=== PATIENT | female | born 1940 | race Caucasian/White ===

== ENCOUNTER 2016-09-19 13:48 | Emergency (ER) | payer MEDICARE, OTHER ==
[2016-09-19] MEDS ORDERED: HYDROcodone/APAP 5-325MG 1 EACH TAB PO STA (14:28)
--- NOTE | 2016-09-19 14:29 | ED ---
General Adult HPI - General Chief complaint: Extremity Injury, Upper Stated complaint: Fall/back pain Time Seen by Provider: 09/19/16 14:25 Source: patient, RN notes reviewed, old records reviewed Mode of arrival: ambulatory Limitations: no limitations - History of Present Illness Initial comments: This is a 68-year-old female here for evaluation. Patient's is here today for evaluation of fall. Patient fell landing on her back beginning of pain in the middle back and right shoulder. No other injuries did not have adenopathy, cecelia fall was purely mechanical no syncope, no headache chest pain shortness of breath or abdominal pain, no history of blood thinners - Related Data Home Medications Medication Instructions Recorded Confirmed Atenolol [Atenolol] 25 mg PO QAM 03/09/16 09/19/16 Warfarin Sodium [Warfarin Sodium] 3 mg PO HS 03/09/16 09/19/16 amLODIPine/ATORVASTATIN 1 tab PO HS 03/09/16 09/19/16 [amLODIPine/ATORVASTATIN 5-10 mg] Previous Rx's Medication Instructions Recorded Nitrofurantoin Monohyd/M-Cryst 100 mg PO Q12HR #10 cap 03/14/16 [Macrobid] Allergies Allergy/AdvReac Type Severity Reaction Status Date / Time sulfamethoxazole Allergy Rash/Hives Verified 09/19/16 14:43 [From Bactrim] trimethoprim [From Bactrim] Allergy Rash/Hives Verified 09/19/16 14:43 Review of Systems ROS Statement: Those systems with pertinent positive or pertinent negative responses have been documented in the HPI. ROS Other: All systems not noted in ROS Statement are negative. Past Medical History Past Medical History: Atrial Fibrillation, Cancer Additional Past Medical History / Comment(s): HX LUNG CA, HX OF "TUMOR ON INTESTINE FOUND WITH HYSTERECTOMY" CHRONIC COUGH, URINARY INCONTINENCE STATES WEARS PAD DAILY History of Any Multi-Drug Resistant Organisms: None Reported Past Surgical History: Hysterectomy Additional Past Surgical History / Comment(s): RT LUNG WEDGE SECTION REMOVED FROM UPPER AND LOWER, STACY CATARACT Past Anesthesia/Blood Transfusion Reactions: No Reported Reaction Past Psychological History: No Psychological Hx Reported Smoking Status: Never smoker Past Alcohol Use History: None Reported Past Drug Use History: None Reported General Exam Limitations: no limitations General appearance: alert, in no apparent distress Head exam: Present: atraumatic, normocephalic, normal inspection Eye exam: Present: normal appearance, PERRL, EOMI. Absent: scleral icterus, conjunctival injection, periorbital swelling ENT exam: Present: normal exam, mucous membranes moist Neck exam: Present: normal inspection. Absent: tenderness, meningismus, lymphadenopathy Respiratory exam: Present: normal lung sounds bilaterally. Absent: respiratory distress, wheezes, rales, rhonchi, stridor Cardiovascular Exam: Present: regular rate, normal rhythm, normal heart sounds. Absent: systolic murmur, diastolic murmur, rubs, gallop, clicks GI/Abdominal exam: Present: soft, normal bowel sounds. Absent: distended, tenderness, guarding, rebound, rigid Extremities exam: Present: normal inspection, full ROM, normal capillary refill. Absent: tenderness, pedal edema, joint swelling, calf tenderness Back exam: Present: normal inspection Neurological exam: Present: alert, oriented X3, CN II-XII intact Psychiatric exam: Present: normal affect, normal mood Skin exam: Present: warm, dry, intact, normal color. Absent: rash Course Vital Signs 09/19/16 14:18 Temperature 97.1 F L Pulse Rate 59 L Respiratory 20 Rate Blood Pressure 155/76 O2 Sat by Pulse 97 Oximetry - Reevaluation(s) Reevaluation #1: 09/19/16 14:47 Pain is improved Medical Decision Making - Medical Decision Making 76 female ER for evaluation. Patient presents here today for evaluation of fall. Follow-up right shoulder pain back pain, contusion or fracture. Patient can be discharged - Radiology Data Radiology results: report reviewed (X-ray right shoulder, chest, pelvis is negative for traumatic injury), image reviewed Disposition Clinical Impression: Fall, Strain of shoulder, Back contusion Disposition: HOME SELF-CARE Condition: Good Instructions: Contusion in Adults (ED) Referrals: Kings Hope MD [Primary Care Provider] - 1-2 days
[2016-09-19] MEDS ORDERED: ONDANSETRON 4 MG TAB PO STA (14:31)
--- NOTE | 2016-09-19 15:38 | XR ---
EXAMINATION TYPE: XR chest 1V DATE OF EXAM: 09/19/2016 3:32 PM COMPARISON: 03/14/2016 HISTORY: Back pain TECHNIQUE: Single frontal view of the chest is obtained. FINDINGS: Heart is enlarged. There is no heart failure. There is coarsening of interstitial markings in the mid and lower lung ayon. There is no pleural effusion. There are no hilar masses. IMPRESSION: Moderate cardiomegaly. Pulmonary fibrotic changes. Inspiration is worse than last exam.
--- NOTE | 2016-09-19 15:42 | XR ---
EXAMINATION TYPE: XR shoulder complete RT DATE OF EXAM: 09/19/2016 3:32 PM COMPARISON: NONE HISTORY: Back pain. Shoulder pain. TECHNIQUE: 3 views FINDINGS: There is narrowing of the glenohumeral joint space with spurring. AC joint is intact. I see no fracture. IMPRESSION: Severe osteoarthritis. No fracture.
--- NOTE | 2016-09-19 15:43 | XR ---
EXAMINATION TYPE: XR pelvis AP view DATE OF EXAM: 09/19/2016 3:32 PM COMPARISON: NONE HISTORY: Pain TECHNIQUE: Single view FINDINGS: Pelvic ring is intact. There are numerous phleboliths in the pelvis. Proximal femurs are in tact. Sacroiliac joints are normal. I see no fracture. IMPRESSION: No acute abnormality of the pelvis.
[2016-09-19] MEDS ORDERED: MORPHINE SULFATE 10 MG/ML SYRINGE IM STA (16:02)
[2016-09-19 16:38] VITALS: BP 157/86; PULSE 64; RESP 18; TEMP 99.3
== END 2016-09-19 16:40 | disposition home or self-care (01) ==
LOC: EC 13:48
DX: S46.911A Strain of unspecified muscle, fascia and tendon at shoulder and upper arm level, right arm, initial encounter (principal); W01.0XXA Fall on same level from slipping, tripping and stumbling without subsequent striking against object, initial encounter; S20.229A Contusion of unspecified back wall of thorax, initial encounter; I48.91 Unspecified atrial fibrillation; Z85.118 Personal history of other malignant neoplasm of bronchus and lung; Z79.01 Long term (current) use of anticoagulants; Z79.899 Other long term (current) drug therapy; Z88.2 Allergy status to sulfonamides
CPT/HCPCS: 71010; 72170; 73030; 99284; 96372; J2270

== ENCOUNTER → 2017-02-04 | Outpatient (CLI) | payer MEDICARE, OTHER ==
[2017-02-04 11:57] LABS: Blood Urea Nitrogen 12 mg/dL (7-17); Non-African American GFR(MDRD) 52 (>60 ml/min/1.73 sqM)
--- NOTE | 2017-02-04 14:46 | CT ---
EXAMINATION TYPE: CT chest w con DATE OF EXAM: 02/04/2017 COMPARISON: 02/17/2016 HISTORY: Uterine cancer, Pulmonary nodules CT DLP: 543 mGycm, Automated exposure control for dose reduction was used. CONTRAST: Performed injected with 75 ml mL of Visipaque 320. TECHNIQUE: Axial images were obtained at 5 mm thick sections. Reconstructed images are reviewed on t he computer in the coronal plane. FINDINGS: There is a large hypodensity within the right lobe thyroid. This could be further evaluated with ultrasound. Some calcified nodule within the inferior pole left lobe thyroid may be present. There is a pleural-based nodule measuring 0.6 cm in depth in the superior lateral left upper lobe. Se gloria 4 image 15. There is a large mass at the as ago esophageal recess better visualized on the mediastinal windows. T his measures 2.5 x 2.2 cm. Series 4 image 3. There is a calcified granuloma in the right middle lobe measuring 0.4 cm. Series 4 image 29. No enlarged mediastinal or hilar adenopathy is evident. The ascending aorta diameter at the level o f the main pulmonary artery is 3.7 cm. The main pulmonary artery diameter at the bifurcation is 3.[address] sections are obtained through the upper abdomen. The anterior inferior left adrenal gland is somewhat prominent measuring 1.1 cm in size. IMPRESSIONS: 1. Pulmonary nodule azygoesophageal recess 2.5 x 2.2 cm mass is larger than the previous 2.0 x 1.9 cm mass. 2. Pleural-based thickening left upper posterior lung. The 0.6 cm depth is greater previous 0.4 cm d epth.
== END | disposition home or self-care (01) ==
LOC: RADCTMAIN 11:19
PROVIDERS: ATTEND Internal Medicine Hematology & Oncology
DX: J92.9 Pleural plaque without asbestos (principal); R91.8 Other nonspecific abnormal finding of lung field; C54.0 Malignant neoplasm of isthmus uteri
CPT/HCPCS: 82565; 84520; 71260; 36415; Q9967

== ENCOUNTER → 2017-05-31 | Outpatient (CLI) | payer MEDICARE, OTHER ==
--- NOTE | 2017-05-31 09:23 | CT ---
EXAMINATION TYPE: CT chest w con DATE OF EXAM: 05/31/2017 COMPARISON: 02/04/2017 HISTORY: Lung and uterine cancer CT DLP: 410 mGycm Automated exposure control for dose reduction was used. CONTRAST: CT scan of the chest is performed with IV Contrast, patient injected with 50 mL of Visipaque 320. FINDINGS: LUNGS: Pleural based lung mass is again noted at the azygoesophageal recess on the right and currentl y measures 2.2 x 1.8 cm versus 2.2 x 2.5 cm previously. No additional pulmonary masses identified. Pl eural-based nodularity left upper lobe measures 5 mm and is unchanged. Fibrotic changes are seen at t he lung bases. Calcified nodule right middle lobe. MEDIASTINUM: There are no greater than 1 cm hilar or mediastinal lymph nodes. No pericardial effusi on is seen. Calcified hilar mediastinal lymph nodes noted. Thoracic aorta is of normal caliber. The heart is not enlarged. UPPER ABDOMEN: No significant abnormality appreciated. OTHER: No additional significant abnormality is seen. IMPRESSION: 1. Pleural based lung mass is again noted at the azygoesophageal recess on the right and currently me asures 2.2 x 1.8 cm versus 2.2 x 2.5 cm previously. 2. Basilar subpleural fibrosis.
== END | disposition home or self-care (01) ==
LOC: RADCTMAIN 08:03
PROVIDERS: ATTEND Internal Medicine Hematology & Oncology
DX: C54.0 Malignant neoplasm of isthmus uteri (principal); J84.10 Pulmonary fibrosis, unspecified; R91.8 Other nonspecific abnormal finding of lung field; Z88.2 Allergy status to sulfonamides; Z88.1 Allergy status to other antibiotic agents
CPT/HCPCS: 82565; 84520; 71260; 36415; Q9967

== ENCOUNTER 2017-11-08 09:00 | Inpatient (IN) | payer MEDICARE, OTHER ==
--- NOTE | 2017-11-08 09:23 | ED ---
General Adult HPI - General Chief complaint: Weakness Stated complaint: Female /weakness Time Seen by Provider: 11/08/17 09:00 Source: patient, family, RN notes reviewed Mode of arrival: wheelchair Limitations: no limitations - History of Present Illness Initial comments: This is a 77-year-old female who presents emergency Department complaining of weakness. Patient states she was diagnosed with urinary tract infection a week ago but is gotten progressively weaker. Patient states she has general body aches as well. Patient denies any fever chills. Patient denies any headache patient denies numbness or focal weakness. Patient denies any chest pain difficulty breathing shortest breath per patient denies any palpitations. Patient denies any abdominal pain. Patient denies nausea or vomiting. Patient states she is chronically had diarrhea but that is ongoing problem. Patient denies any recent injury or fall. Patient denies any calf pain or leg swelling. Patient states as a young person she had a history of anemia but nothing recently. - Related Data Home Medications Medication Instructions Recorded Confirmed Atenolol 25 mg PO QAM 03/09/16 11/08/17 amLODIPine/ATORVASTATIN 1 tab PO HS 03/09/16 11/08/17 [amLODIPine/ATORVASTATIN 5-10 mg] Cyanocobalamin [Vitamin B-12 2,000 mcg SQ Q30D 11/08/17 11/08/17 Injection] Ipratropium-Albuterol Nebulize 3 ml INHALATION RT-QID PRN 11/08/17 11/08/17 [Duoneb 0.5 mg-3 mg/3 ml Soln] Megestrol [Megace] 40 mg PO DAILY 11/08/17 11/08/17 Rivaroxaban [Xarelto] 20 mg PO DAILY 11/08/17 11/08/17 Allergies Allergy/AdvReac Type Severity Reaction Status Date / Time ciprofloxacin [From Cipro] Allergy Anaphylaxis Verified 11/08/17 10:19 nitrofurantoin Allergy Dyspnea Verified 11/08/17 10:19 [From Macrobid] sulfamethoxazole Allergy Rash/Hives Verified 11/08/17 09:11 [From Bactrim] trimethoprim [From Bactrim] Allergy Rash/Hives Verified 11/08/17 09:11 amoxicillin [From Augmentin] AdvReac Nausea & Verified 11/08/17 10:19 Vomiting clavulanic acid AdvReac Nausea & Verified 11/08/17 10:19 [From Augmentin] Vomiting levofloxacin [From Levaquin] AdvReac Nausea & Verified 11/08/17 10:19 Vomiting Review of Systems ROS Statement: Those systems with pertinent positive or pertinent negative responses have been documented in the HPI. ROS Other: All systems not noted in ROS Statement are negative. Past Medical History Past Medical History: Atrial Fibrillation, Cancer Additional Past Medical History / Comment(s): HX LUNG CA, HX OF "TUMOR ON INTESTINE FOUND WITH HYSTERECTOMY" CHRONIC COUGH, URINARY INCONTINENCE STATES WEARS PAD DAILY History of Any Multi-Drug Resistant Organisms: None Reported Past Surgical History: Hysterectomy Additional Past Surgical History / Comment(s): RT LUNG WEDGE SECTION REMOVED FROM UPPER AND LOWER, STACY CATARACT Past Anesthesia/Blood Transfusion Reactions: No Reported Reaction Past Psychological History: No Psychological Hx Reported Smoking Status: Never smoker Past Alcohol Use History: None Reported Past Drug Use History: None Reported General Exam - General Exam Comments Initial Comments: GENERAL: Patient is well-developed and well-nourished. Patient is nontoxic and well- hydrated and is in mild distress. ENT: Neck is soft and supple. No significant lymphadenopathy is noted. Oropharynx is clear. Moist mucous membranes. Neck has full range of motion without eliciting any pain. EYES: The sclera were anicteric and conjunctiva were pink and moist. Extraocular movements were intact and pupils were equal round and reactive to light. Eyelids were unremarkable. PULMONARY: Unlabored respirations. Good breath sounds bilaterally. No audible rales rhonchi or wheezing was noted. CARDIOVASCULAR: There is a regular rate and rhythm without any murmurs gallops or rubs. ABDOMEN: Soft and nontender with normal bowel sounds. No palpable organomegaly was noted. There is no palpable pulsatile mass. SKIN: Patient's skin is slightly pale. NEUROLOGIC: Patient is alert and oriented x3. Cranial nerves II through XII are grossly intact. Motor and sensory are also intact. Normal speech, volume and content. Symmetrical smile. MUSCULOSKELETAL: Normal extremities with adequate strength and full range of motion. LYMPHATICS: No significant lymphadenopathy is noted PSYCHIATRIC: Normal psychiatric evaluation. Limitations: no limitations Course Vital Signs 11/08/17 11/08/17 11/08/17 09:04 09:35 10:19 Temperature 98.3 F Pulse Rate 75 65 68 Respiratory 18 16 18 Rate Blood Pressure 103/71 154/92 131/79 O2 Sat by Pulse 96 99 99 Oximetry Medical Decision Making - Medical Decision Making EKG shows atrial fibrillation at 84 bpm QRS is 70 QT interval 358 QTC is 423. Patient's EKG shows no ST segment elevation or depression. Patient's urine shows that she still has an infection and started on Rocephin. I'm going to admit the patient secondary to the fact she is too weak to go home and she has failed outpatient treatment for urinary tract infection I spoke with Dr. reyes and he accepted the admission I wrote admitting orders. - Lab Data Result diagrams: 11/08/17 09:30 11/08/17 09:30 Lab Results 11/08/17 11/08/17 11/08/17 Range/Units 09:30 09:30 09:30 WBC 5.1 (3.8-10.6) k/uL RBC 4.62 (3.80-5.40) m/uL Hgb 14.0 (11.4-16.0) gm/dL Hct 40.5 (34.0-46.0) % MCV 87.7 (80.0-100.0) fL MCH 30.3 (25.0-35.0) pg MCHC 34.6 (31.0-37.0) g/dL RDW 13.3 (11.5-15.5) % Plt Count 198 (150-450) k/uL Neutrophils % 60 % Lymphocytes % 27 % Monocytes % 9 % Eosinophils % 3 % Basophils % 1 % Neutrophils # 3.1 (1.3-7.7) k/uL Lymphocytes # 1.4 (1.0-4.8) k/uL Monocytes # 0.4 (0-1.0) k/uL Eosinophils # 0.1 (0-0.7) k/uL Basophils # 0.0 (0-0.2) k/uL PT (9.0-12.0) sec INR (<1.2) APTT (22.0-30.0) sec Sodium 138 (137-145) mmol/L Potassium 4.8 (3.5-5.1) mmol/L Chloride 107 (98-107) mmol/L Carbon Dioxide 22 (22-30) mmol/L Anion Gap 9 mmol/L BUN 13 (7-17) mg/dL Creatinine 1.14 H (0.52-1.04) mg/dL Est GFR (CKD-EPI)AfAm 53 (>60 ml/min/1.73 sqM) Est GFR (CKD-EPI)NonAf 46 (>60 ml/min/1.73 sqM) Glucose 97 (74-99) mg/dL Plasma Lactic Acid Darrell (0.7-2.0) mmol/L Calcium 10.8 H (8.4-10.2) mg/dL Magnesium 2.0 (1.6-2.3) mg/dL Total Bilirubin 0.9 (0.2-1.3) mg/dL AST 27 (14-36) U/L ALT 28 (9-52) U/L Alkaline Phosphatase 84 (38-126) U/L Total Creatine Kinase 29 L (30-135) U/L CK-MB (CK-2) 0.3 (0.0-2.4) ng/mL CK-MB (CK-2) Rel Index 1.0 Troponin I <0.012 (0.000-0.034) ng/mL Total Protein 6.2 L (6.3-8.2) g/dL Albumin 3.5 (3.5-5.0) g/dL Urine Color Urine Appearance (Clear) Urine pH (5.0-8.0) Ur Specific [place] (1.001-1.035) Urine Protein (Negative) Urine Glucose (UA) (Negative) Urine Ketones (Negative) Urine Blood (Negative) Urine Nitrite (Negative) Urine Bilirubin (Negative) Urine Urobilinogen (<2.0) mg/dL Ur Leukocyte Esterase (Negative) Urine RBC (0-5) /hpf Urine WBC (0-5) /hpf Urine WBC Clumps (None) /hpf Urine Bacteria (None) /hpf Urine Mucus (None) /hpf 11/08/17 11/08/17 11/08/17 Range/Units 09:30 09:30 09:40 WBC (3.8-10.6) k/uL RBC (3.80-5.40) m/uL Hgb (11.4-16.0) gm/dL Hct (34.0-46.0) % MCV (80.0-100.0) fL MCH (25.0-35.0) pg MCHC (31.0-37.0) g/dL RDW (11.5-15.5) % Plt Count (150-450) k/uL Neutrophils % % Lymphocytes % % Monocytes % % Eosinophils % % Basophils % % Neutrophils # (1.3-7.7) k/uL Lymphocytes # (1.0-4.8) k/uL Monocytes # (0-1.0) k/uL Eosinophils # (0-0.7) k/uL Basophils # (0-0.2) k/uL PT 12.4 H (9.0-12.0) sec INR 1.3 H (<1.2) APTT 27.5 (22.0-30.0) sec Sodium (137-145) mmol/L Potassium (3.5-5.1) mmol/L Chloride (98-107) mmol/L Carbon Dioxide (22-30) mmol/L Anion Gap mmol/L BUN (7-17) mg/dL Creatinine (0.52-1.04) mg/dL Est GFR (CKD-EPI)AfAm (>60 ml/min/1.73 sqM) Est GFR (CKD-EPI)NonAf (>60 ml/min/1.73 sqM) Glucose (74-99) mg/dL Plasma Lactic Acid Darrell 1.4 (0.7-2.0) mmol/L Calcium (8.4-10.2) mg/dL Magnesium (1.6-2.3) mg/dL Total Bilirubin (0.2-1.3) mg/dL AST (14-36) U/L ALT (9-52) U/L Alkaline Phosphatase (38-126) U/L Total Creatine Kinase (30-135) U/L CK-MB (CK-2) (0.0-2.4) ng/mL CK-MB (CK-2) Rel Index Troponin I (0.000-0.034) ng/mL Total Protein (6.3-8.2) g/dL Albumin (3.5-5.0) g/dL Urine Color Yellow Urine Appearance Cloudy H (Clear) Urine pH 6.5 (5.0-8.0) Ur Specific [place] 1.009 (1.001-1.035) Urine Protein Negative (Negative) Urine Glucose (UA) Negative (Negative) Urine Ketones Negative (Negative) Urine Blood Negative (Negative) Urine Nitrite Positive H (Negative) Urine Bilirubin Negative (Negative) Urine Urobilinogen <2.0 (<2.0) mg/dL Ur Leukocyte Esterase Large H (Negative) Urine RBC 3 (0-5) /hpf Urine WBC 43 H (0-5) /hpf Urine WBC Clumps Moderate H (None) /hpf Urine Bacteria Rare H (None) /hpf Urine Mucus Rare H (None) /hpf Disposition Clinical Impression: Failure of outpatient treatment, Urinary tract infection Disposition: ADMITTED IP TO THIS HOSP Referrals: Kings Hope MD [Primary Care Provider] - 1-2 days Time of Disposition: 11:15
[2017-11-08 10:06] LABS: Albumin 3.5 g/dL (3.5-5.0); Calcium 10.8 mg/dL (8.4-10.2); Potassium 4.8 mmol/L (3.5-5.1); Total Bilirubin 0.9 mg/dL (0.2-1.3); Total Protein 6.2 g/dL (6.3-8.2)
[2017-11-08 10:18] LABS: Appearance,Urine Cloudy (Clear); Bacteria,Urine Rare /hpf; Bilirubin,Urine Negative (Negative); Blood,Urine Negative (Negative); Color,Urine Yellow; Glucose,Urine (UA) Negative (Negative); Ketones,Urine Negative (Negative); Leukocyte Esterase,Urine Large (Negative); Mucus,Urine Rare /hpf; Nitrite,Urine Positive (Negative); PH, Urine 6.5 (5.0-8.0); Protein,Urine Negative (Negative); RBC,Urine 3 /hpf (0-5); Specific Gravity,Urine 1.009 (1.001-1.035); Urobilinogen,Urine <2.0 mg/dL (<2.0); WBC,Urine 43 /hpf (0-5)
[2017-11-08 10:19] LABS: Creatine Kinase 29 U/L (30-135)
[2017-11-08 10:23] LABS: INR 1.3 (<1.2); Partial Thromboplastin Time 27.5 sec (22.0-30.0); Prothrombin Time 12.4 sec (9.0-12.0)
[2017-11-08 10:28] LABS: Basophils % (A) 1 %; Eosinophils # (A) 0.1 k/uL (0-0.7); Eosinophils % (A) 3 %; HCT 40.5 % (34.0-46.0); Lymphocytes # (A) 1.4 k/uL (1.0-4.8); Lymphocytes % (A) 27 %; MCH 30.3 pg (25.0-35.0); MCHC 34.6 g/dL (31.0-37.0); MCV 87.7 fL (80.0-100.0); Mean Platelet Volume 6.8; Monocytes # (A) 0.4 k/uL (0-1.0); Monocytes % (A) 9 %; Neutrophils # (A) 3.1 k/uL (1.3-7.7); Neutrophils % (A) 60 %; Platelet Count 198 k/uL (150-450); RBC 4.62 m/uL (3.80-5.40); RDW 13.3 % (11.5-15.5); WBC 5.1 k/uL (3.8-10.6)
[2017-11-08 10:31] LABS: Creatine Kinase MB 0.3 ng/mL (0.0-2.4); Troponin I <0.012 ng/mL (0.000-0.034)
--- NOTE | 2017-11-08 10:31 | XR ---
EXAMINATION TYPE: XR chest 2V DATE OF EXAM: 11/08/2017 COMPARISON: 09/19/2016 HISTORY: Weakness TECHNIQUE: Frontal and lateral views of the chest are obtained. FINDINGS: Redemonstration of a pleural-based mass in the azygos esophageal recess. Cardiomegaly remai ns. Interstitial prominence and a basilar peripheral distribution relates to the known fibrosis. Ther e is no new focal air space opacity, pleural effusion, or pneumothorax seen. The cardiac silhouette size is within normal limits. The osseous structures are intact. IMPRESSION: Chronic changes with no acute cardiopulmonary process.
[2017-11-08] MEDS ORDERED: cefTRIAXone IN SWFI 1,000 MG/10 ML SYRINGE IVP STA (10:48)
[2017-11-08] MEDS ORDERED: NITROGLYCERIN SL TABS 0.4 MG TAB SUBLINGUAL PRN (11:15)
[2017-11-08] MEDS ORDERED: HEPARIN SODIUM,PORCINE 5,000 UNIT/ML 1 ML VIAL IV ONE (11:17)
[2017-11-08] MEDS ORDERED: SODIUM CHLORIDE 0.9% 1,000 ML IV ONE (11:20)
[2017-11-08] MEDS ORDERED: HEPARIN SOD,PORK IN 0.45% NACL 25,000 UNIT in 0.45% NACL 1 500ML.BAG IV SCH (11:30)
[2017-11-08] MEDS ORDERED: NITROGLYCERIN OINT 1 INCH/GM PACKET TOPICAL SCH (12:00)
[2017-11-08] MEDS ORDERED: IPRATROPIUM-ALBUTEROL 3 ML NEB INHALATION PRN (14:48)
--- NOTE | 2017-11-08 16:07 | P.HPIM ---
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 Patient presents this time because of generalized weakness over the last 2 days, and then the emergency room was noticed to have positive urinalysis suspicious for urinary tract infection. Patient denies any dysuria, no urgency. No change in frequency however she has urinary incontinence Review of Systems CONSTITUTIONAL: No fever, no malaise, no fatigue. HEENT: No recent visual problems or hearing problems. Denied any sore throat. CARDIOVASCULAR: No orthopnea, PND, no palpitations, no syncope. PULMONARY: No shortness of breath, no cough, no hemoptysis. GASTROINTESTINAL: No diarrhea, no nausea, no vomiting, no abdominal pain. Normoactive bowel sounds. NEUROLOGICAL: No headaches, no weakness, no numbness. HEMATOLOGICAL: Denies any bleeding or petechiae. GENITOURINARY: Denies any burning micturition, frequency, or urgency. MUSCULOSKELETAL/RHEUMATOLOGICAL: Denies any joint pain, swelling, or any muscle pain. ENDOCRINE: Denies any polyuria or polydipsia. Past Medical History Past Medical History: Atrial Fibrillation, Cancer, Hyperlipidemia, Hypertension , Pneumonia Additional Past Medical History / Comment(s): HX OF "uterine cancer mets to lung and one ovary- SX ONLY NEVER HAD ANY CHEMO OR RADIATION" CHRONIC COUGH, URINARY INCONTINENCE STATES WEARS PULL UP, bronchitis,PAST MIGRAINES, HAS EPISODIC DIARRHEA,RECURRING UTI'S History of Any Multi-Drug Resistant Organisms: None Reported Past Surgical History: Hysterectomy Additional Past Surgical History / Comment(s): RT LUNG WEDGE SECTION REMOVED FROM UPPER AND LOWER, STACY CATARACT, BRONCHOSOCPY Past Anesthesia/Blood Transfusion Reactions: No Reported Reaction Smoking Status: Never smoker - Past Family History Father Additional Family Medical History / Comment(s): "HEART PROBLEMS Mother Family Medical History: Congestive Heart Failure (CHF) Brother(s) Family Medical History: Cancer, Myocardial Infarction (MT) Medications and Allergies Home Medications Medication Instructions Recorded Confirmed Type Atenolol 25 mg PO QAM 03/09/16 11/08/17 History amLODIPine/ATORVASTATIN 1 tab PO HS 03/09/16 11/08/17 History [amLODIPine/ATORVASTATIN 5-10 mg] Cyanocobalamin [Vitamin B-12 2,000 mcg SQ Q30D 11/08/17 11/08/17 History Injection] Ipratropium-Albuterol Nebulize 3 ml INHALATION RT-QID PRN 11/08/17 11/08/17 History [Duoneb 0.5 mg-3 mg/3 ml Soln] Megestrol [Megace] 40 mg PO DAILY 11/08/17 11/08/17 History Rivaroxaban [Xarelto] 20 mg PO DAILY 11/08/17 11/08/17 History Allergies Allergy/AdvReac Type Severity Reaction Status Date / Time ciprofloxacin [From Cipro] Allergy Anaphylaxis Verified 11/08/17 10:19 nitrofurantoin Allergy Dyspnea Verified 11/08/17 10:19 [From Macrobid] sulfamethoxazole Allergy Rash/Hives Verified 11/08/17 09:11 [From Bactrim] trimethoprim [From Bactrim] Allergy Rash/Hives Verified 11/08/17 09:11 amoxicillin [From Augmentin] AdvReac Nausea & Verified 11/08/17 10:19 Vomiting clavulanic acid AdvReac Nausea & Verified 11/08/17 10:19 [From Augmentin] Vomiting levofloxacin [From Levaquin] AdvReac Nausea & Verified 11/08/17 10:19 Vomiting Physical Exam Vitals: Vital Signs Temp Pulse Pulse Resp BP BP Pulse Ox 11/08/17 14:35 97.8 F 78 17 128/80 98 11/08/17 14:07 98.6 F 72 15 137/67 98 11/08/17 12:17 67 18 137/86 100 11/08/17 11:20 72 18 134/74 99 11/08/17 10:19 68 18 131/79 99 11/08/17 09:35 65 16 154/92 99 11/08/17 09:04 98.3 F 75 18 103/71 96 Intake and Output 11/08/17 11/08/17 11/08/17 06:59 14:59 22:59 Other: Voiding Method Urinal Incontinent Weight 74.843 kg GENERAL: The patient is alert and oriented x3, not in any acute distress. Well developed, well nourished. HEENT: Pupils are round and equally reacting to light. EOMI. No scleral icterus. No conjunctival pallor. Normocephalic, atraumatic. No pharyngeal erythema. No thyromegaly. CARDIOVASCULAR: S1 and S2 present. No murmurs, rubs, or gallops. PULMONARY: Chest is clear to auscultation, no wheezing or crackles. ABDOMEN: Soft, nontender, nondistended, normoactive bowel sounds. No palpable organomegaly. MUSCULOSKELETAL: No joint swelling or deformity. EXTREMITIES: No cyanosis, clubbing, or pedal edema. NEUROLOGICAL: Gross neurological examination did not reveal any focal deficits. SKIN: No rashes. Results CBC & Chem 7: 11/08/17 09:30 11/08/17 09:30 Labs: Abnormal Lab Results - Last 24 Hours (Table) 11/08/17 11/08/17 11/08/17 Range/Units 09:30 09:30 09:30 PT 12.4 H (9.0-12.0) sec INR 1.3 H (<1.2) Creatinine 1.14 H (0.52-1.04) mg/dL Calcium 10.8 H (8.4-10.2) mg/dL Total Creatine Kinase 29 L (30-135) U/L Total Protein 6.2 L (6.3-8.2) g/dL Urine Appearance (Clear) Urine Nitrite (Negative) Ur Leukocyte Esterase (Negative) Urine WBC (0-5) /hpf Urine WBC Clumps (None) /hpf Urine Bacteria (None) /hpf Urine Mucus (None) /hpf 11/08/17 Range/Units 09:40 PT (9.0-12.0) sec INR (<1.2) Creatinine (0.52-1.04) mg/dL Calcium (8.4-10.2) mg/dL Total Creatine Kinase (30-135) U/L Total Protein (6.3-8.2) g/dL Urine Appearance Cloudy H (Clear) Urine Nitrite Positive H (Negative) Ur Leukocyte Esterase Large H (Negative) Urine WBC 43 H (0-5) /hpf Urine WBC Clumps Moderate H (None) /hpf Urine Bacteria Rare H (None) /hpf Urine Mucus Rare H (None) /hpf Microbiology - Last 24 Hours (Table) 11/08/17 09:40 Urine Culture - Preliminary Urine,Catheterized Thrombosis Risk Factor Assmnt - Choose All That Apply Each Factor Represents 1 point: Obesity (BMI >25) Each Risk Factor Represents 2 Points: Patient confined to bed Each Risk Factor Represents 3 Points: Age 75 years or older Thrombosis Risk Factor Assessment Total Risk Factor Score: 6 Thrombosis Risk Factor Assessment Level: High Risk Assessment and Plan Plan: -Urinary tract infection, continue with antibiotics, patient is started on ceftriaxone. Follow-up urine culture -Chronic kidney disease, stage III -Hypercalcemia, angina with IV hydration, mostly related to her cancer. -Chronic A. fib, continue with his Celeste and 15 or mean.-Hypertension continue with same treatment -Hyperlipidemia continue same treatment DVT prophylaxis on XARELTO GI prophylaxis on Pepcid
[2017-11-08] MEDS: IPRATROPIUM-ALBUTEROL 3 ML NEB INHALATION SCH ×2 (16:09→20:21)
[2017-11-08] MEDS: amLODIPine 5 MG TAB PO SCH (21:37)
[2017-11-08] MEDS: RIVAROXABAN 20 MG TAB PO SCH (21:37)
[2017-11-08] MEDS: ATORVASTATIN 10 MG TAB PO SCH (21:37)
[2017-11-09] MEDS: IPRATROPIUM-ALBUTEROL 3 ML NEB INHALATION SCH ×4 (08:48→19:33)
[2017-11-09] MEDS: MEGESTROL 40 MG TAB PO SCH (08:52)
[2017-11-09] MEDS: ATENOLOL 25 MG TAB PO SCH (08:52)
[2017-11-09] MEDS: cefTRIAXone IN SWFI 1,000 MG/10 ML SYRINGE IVP SCH (08:58)
[2017-11-09] MEDS ORDERED: ASPIRIN 325 MG TAB PO SCH (09:00)
[2017-11-09] MEDS ORDERED: RIVAROXABAN 20 MG TAB PO SCH (09:00)
[2017-11-09 09:57] LABS: Basophils % (A) 0 %; Eosinophils # (A) 0.1 k/uL (0-0.7); Eosinophils % (A) 2 %; HCT 40.3 % (34.0-46.0); HGB 13.3 gm/dL (11.4-16.0); Lymphocytes # (A) 1.3 k/uL (1.0-4.8); Lymphocytes % (A) 27 %; MCH 28.8 pg (25.0-35.0); MCHC 33.1 g/dL (31.0-37.0); Monocytes # (A) 0.4 k/uL (0-1.0); Monocytes % (A) 7 %; Neutrophils # (A) 3.2 k/uL (1.3-7.7); Neutrophils % (A) 64 %; Platelet Count 186 k/uL (150-450); RBC 4.63 m/uL (3.80-5.40); RDW 13.2 % (11.5-15.5)
[2017-11-09 10:03] LABS: Calcium 10.4 mg/dL (8.4-10.2); Potassium 4.7 mmol/L (3.5-5.1)
--- NOTE | 2017-11-09 11:15 | P.PN ---
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 Patient presents this time because of generalized weakness over the last 2 days, and then the emergency room was noticed to have positive urinalysis suspicious for urinary tract infection. Patient denies any dysuria, no urgency. No change in frequency however she has urinary incontinence 11/09/2017 Patient states she feels better as with IV hydration and antibiotics. at bedside. Patient and states that they have for recurrent urinary tract infection almost once every month at least for the last 6 months. Her PCP is Dr. zelaya who planned for home health care this week for her generalized weakness however she came to the hospital. Breasts noticed to have high calcium at 10.4, she has history of high calcium at 11.0 on 03/14/2016. We will check parathyroid hormone. Continue with IV hydration. And asked for infectious disease consult for recurrence UTI Objective - Vital Signs Vital signs: Vital Signs Temp 97.0 F L 11/09/17 06:30 Pulse 85 11/09/17 06:30 Resp 16 11/09/17 06:30 BP 134/76 11/09/17 06:30 Pulse Ox 94 L 11/09/17 06:30 Intake & Output 11/08/17 11/09/17 11/09/17 18:59 06:59 18:59 Weight 74.843 kg Other: Voiding Method Urinal Urinal Diaper Incontinent Incontinent Incontinent # Voids 3 - Exam GENERAL: The patient is alert and oriented x3, not in any acute distress. Well developed, well nourished. HEENT: Pupils are round and equally reacting to light. EOMI. No scleral icterus. No conjunctival pallor. Normocephalic, atraumatic. No pharyngeal erythema. No thyromegaly. CARDIOVASCULAR: S1 and S2 present. No murmurs, rubs, or gallops. PULMONARY: Chest is clear to auscultation, no wheezing or crackles. ABDOMEN: Soft, nontender, nondistended, normoactive bowel sounds. No palpable organomegaly. MUSCULOSKELETAL: No joint swelling or deformity. EXTREMITIES: No cyanosis, clubbing, or pedal edema. NEUROLOGICAL: Gross neurological examination did not reveal any focal deficits. SKIN: No rashes. - Labs CBC & Chem 7: 11/09/17 08:39 11/09/17 08:39 Labs: Abnormal Lab Results - Last 24 Hours (Table) 11/09/17 Range/Units 08:39 Carbon Dioxide 20 L (22-30) mmol/L Glucose 104 H (74-99) mg/dL Calcium 10.4 H (8.4-10.2) mg/dL HDL Cholesterol 36 L (40-60) mg/dL Microbiology - Last 24 Hours (Table) 11/08/17 09:40 Urine Culture - Preliminary Urine,Catheterized Assessment and Plan Plan: -Urinary tract infection, continue with antibiotics, patient is started on ceftriaxone. Follow-up urine culture -Chronic kidney disease, stage III -Hypercalcemia, continue with IV hydration, history of hypercalcemia in the past. We'll check parathyroid hormone -Chronic A. fib, continue with xarelto .HR controlled -Hypertension continue with same treatment -Hyperlipidemia continue same treatment DVT prophylaxis on XARELTO GI prophylaxis on Pepcid
[2017-11-09] MEDS: amLODIPine 5 MG TAB PO SCH (21:30)
[2017-11-09] MEDS: RIVAROXABAN 20 MG TAB PO SCH (21:30)
[2017-11-09] MEDS: ATORVASTATIN 10 MG TAB PO SCH (21:30)
[2017-11-09] MEDS ORDERED: ACETAMINOPHEN TAB 325 MG TAB ONE ×2 (22:48→22:50)
[2017-11-10] MEDS ORDERED: ACETAMINOPHEN TAB 325 MG TAB PO PRN (05:46)
--- NOTE | 2017-11-10 07:09 | P.CONS ---
History of Present Illness - Reason for Consult Consult date: 11/09/17 - Chief Complaint Fever - History of Present Illness 77-year-old female presents from her home environment not feeling well with profound increased weakness, increasing difficulties trying to get out of bed and worsening of her underlying urinary discomforts. The patient's daughter is present and helps with the history. The patient has been having a decline of her status over the last several months. She does live in the family home with her who is able to care for her. He has had significant health challenges but is now doing well, and there is the daughter who was also able to help. The patient has many ALLERGIES which is making it somewhat difficult to treat her frequent urinary tract infections. In the past was doing relatively well on Macrobid but with underlying lung disease is no longer able to take this. Since that has had more frequent urinary infections. At this time she relates that she was having increasing frequency, was having difficulties with discomfort in the suprapubic area. She is completely incontinent and is unaware of when she urinates except it is quite predictable that when she arises from a sitting position she gets a gush of urine. She wears briefs as well as a pad because the rapidity of the urine overwhelms the brief and she saturates chairs and clothing and constantly has added a pad to the brief. She at this time remains very weak. It is related that the progressive weakness was a major determine her for her to come to hospital. She does not believe that she's had high fever she often has chills but no rigors. She does feel quite poorly compared to her baseline, was able to eat. She has no sensation of the urination which has gone on for many years, it occurred after her significant pelvic pathology of uterine cancer and large ovarian mass that required surgical resection, after which she has been incontinent. Review of Systems 77-year-old woman feels poorly HEENT:Denies headache or acute visual change. Denies sinus or mouth discomforts. Denies neck stiffness or pain. Denies significant oral cavity pain. Denies difficulty on swallowing. Lungs: Denies significant shortness of breath, cough, sputum production, or hemoptysis. Cardiovascular: Denies significant shortness of breath, chest pain, chest wall pain, orthopnea, dyspnea on exertion, syncope Gastrointestinal:Denies nausea, vomiting, diarrhea, constipation, hematemesis, melena, hematochezia. No no significant change of bowel habit noticed. Musculoskeletal: Generalized weakness Skin: Denies new rash or lesions. No new ulcers or wounds are related.. Neuro: Denies headache or visual change. Has generalized weakness but no specific laterality to her weakness concern that she would fall but has not. Psychiatric:Denies anxiety or depression. Endocrine: Has had significant fatigue weight has been stable to minimal loss Past Medical History Past Medical History: Atrial Fibrillation, Cancer, Hyperlipidemia, Hypertension , Pneumonia Additional Past Medical History / Comment(s): HX OF "uterine cancer mets to lung and one ovary- SX ONLY NEVER HAD ANY CHEMO OR RADIATION" CHRONIC COUGH, URINARY INCONTINENCE STATES WEARS PULL UP, bronchitis,PAST MIGRAINES, HAS EPISODIC DIARRHEA,RECURRING UTI'S History of Any Multi-Drug Resistant Organisms: None Reported Past Surgical History: Hysterectomy Additional Past Surgical History / Comment(s): RT LUNG WEDGE SECTION REMOVED FROM UPPER AND LOWER, STACY CATARACT, BRONCHOSOCPY Past Anesthesia/Blood Transfusion Reactions: No Reported Reaction Additional Psychological History / Comment(s): and lives in the family home with her who is the whittling room operator. 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 The patient herself is not a tobacco smoker, does not use alcohol or recreational drugs. She has no experience. Is a retired [employer] no international travel. No animals in the home Smoking Status: Never smoker - Past Family History Father Additional Family Medical History / Comment(s): "HEART PROBLEMS Mother Family Medical History: Congestive Heart Failure (CHF) Brother(s) Family Medical History: Cancer, Myocardial Infarction ([place]) Medications and Allergies Home Medications and Allergies Comment(s): Current Medications Acetaminophen (Tylenol Tab) 650 mg PO Q6HR PRN PRN Reason: Fever and/ or Pain Albuterol/Ipratropium (Duoneb 0.5 Mg-3 Mg/3 Ml Soln) 3 ml INHALATION RT-QID [facility] Last Admin: 11/09/17 19:33 Dose: Not Given Albuterol/Ipratropium (Duoneb 0.5 Mg-3 Mg/3 Ml Soln) 3 ml INHALATION RT-Q2H PRN PRN Reason: Shortness Of Breath Or Wheezing Amlodipine Besylate (Norvasc) 5 mg PO HS [facility] Last Admin: 11/09/17 21:30 Dose: 5 mg Atenolol (Tenormin) 25 mg PO QAM [facility] Last Admin: 11/09/17 08:52 Dose: 25 mg Atorvastatin Calcium (Lipitor) 10 mg PO HS [facility] Last Admin: 11/09/17 21:30 Dose: 10 mg Ceftriaxone Sodium (Rocephin) 1,000 mg IVP Q24HR [facility] Last Admin: 11/09/17 08:58 Dose: 1,000 mg Megestrol Acetate (Megace) 40 mg PO DAILY [facility] Last Admin: 11/09/17 08:52 Dose: 40 mg Rivaroxaban (Xarelto) 20 mg PO [facility] Last Admin: 11/09/17 21:30 Dose: 20 mg Home Medications Medication Instructions Recorded Confirmed Type Atenolol 25 mg PO QAM 03/09/16 11/08/17 History amLODIPine/ATORVASTATIN 1 tab PO HS 03/09/16 11/08/17 History [amLODIPine/ATORVASTATIN 5-10 mg] Cyanocobalamin [Vitamin B-12 2,000 mcg SQ Q30D 11/08/17 11/08/17 History Injection] Ipratropium-Albuterol Nebulize 3 ml INHALATION RT-QID PRN 11/08/17 11/08/17 History [Duoneb 0.5 mg-3 mg/3 ml Soln] Megestrol [Megace] 40 mg PO DAILY 11/08/17 11/08/17 History Rivaroxaban [Xarelto] 20 mg PO DAILY 11/08/17 11/08/17 History Allergies Allergy/AdvReac Type Severity Reaction Status Date / Time ciprofloxacin [From Cipro] Allergy Anaphylaxis Verified 11/08/17 10:19 nitrofurantoin Allergy Dyspnea Verified 11/08/17 10:19 [From Macrobid] sulfamethoxazole Allergy Rash/Hives Verified 11/08/17 09:11 [From Bactrim] trimethoprim [From Bactrim] Allergy Rash/Hives Verified 11/08/17 09:11 amoxicillin [From Augmentin] AdvReac Nausea & Verified 11/08/17 10:19 Vomiting clavulanic acid AdvReac Nausea & Verified 11/08/17 10:19 [From Augmentin] Vomiting levofloxacin [From Levaquin] AdvReac Nausea & Verified 11/08/17 10:19 Vomiting Physical Exam Vitals: Vital Signs Temp Pulse Resp BP BP Pulse Ox 11/09/17 21:46 97.9 F 83 16 138/76 93 L 11/09/17 15:00 97.8 F 86 16 104/63 93 L Intake and Output 11/09/17 11/09/17 11/10/17 14:59 22:59 06:59 Intake Total 200 Balance 200 Intake: Oral 200 Other: Voiding Method Diaper Diaper Incontinent Incontinent # Voids 1 1 2 Pleasant 77-year-old woman who is a modest historian per daughter is helpful and filling in details HEENT: Anicteric conjunctiva are pink and moist nasal mucosa grossly intact without significant lesions, there is no thrush. Upper and lower dentures Neck: The neck is supple without significant lymphadenopathy or thyromegaly. Lungs: Good bilateral air entry without significant crackles or wheezing. There is no significant bronchial sounds. There is no egophony or dullness. Heart: Regular rate and rhythm with an audible S1-S2, no S3 no S4. There is no significant murmur click or rub, PMI was nondisplaced. Abdomen: Doughy in consistency, Positive bowel sounds soft and nontender without palpable masses or organomegaly. There was no guarding or rebound. There is no flank tenderness but there is distinct suprapubic tenderness on exam Extremities: The upper extremities have excellent pulses they are symmetric, no significant petechiae or telangiectasia. No splinter hemorrhages were noted. The lower extremities have symmetric bilateral lower extremity edema which apparently is quite common in persistent, no ulcerations are seen. The peripheral pulses were 2+ and symmetric. Neuro: Awake alert oriented to person place and time. Does have some minimal difficulties with memory. The daughter is very helpful and filling out this specific details, but does not have acute gross focal sensory motor deficits. Results Results: Laboratory Results WBC 5.0 k/uL (3.8-10.6) 11/09/17 08:39 RBC 4.63 m/uL (3.80-5.40) 11/09/17 08:39 Hgb 13.3 gm/dL (11.4-16.0) 11/09/17 08:39 Hct 40.3 % (34.0-46.0) 11/09/17 08:39 MCV 87.0 fL (80.0-100.0) 11/09/17 08:39 MCH 28.8 pg (25.0-35.0) 11/09/17 08:39 MCHC 33.1 g/dL (31.0-37.0) 11/09/17 08:39 RDW 13.2 % (11.5-15.5) 11/09/17 08:39 Plt Count 186 k/uL (150-450) 11/09/17 08:39 Neutrophils % 64 % 11/09/17 08:39 Lymphocytes % 27 % 11/09/17 08:39 Monocytes % 7 % 11/09/17 08:39 Eosinophils % 2 % 11/09/17 08:39 Basophils % 0 % 11/09/17 08:39 Neutrophils # 3.2 k/uL (1.3-7.7) 11/09/17 08:39 Lymphocytes # 1.3 k/uL (1.0-4.8) 11/09/17 08:39 Monocytes # 0.4 k/uL (0-1.0) 11/09/17 08:39 Eosinophils # 0.1 k/uL (0-0.7) 11/09/17 08:39 Basophils # 0.0 k/uL (0-0.2) 11/09/17 08:39 PT 12.4 sec (9.0-12.0) H 11/08/17 09:30 INR 1.3 (<1.2) H 11/08/17 09:30 APTT 27.5 sec (22.0-30.0) 11/08/17 09:30 Sodium 137 mmol/L (137-145) 11/09/17 08:39 Potassium 4.7 mmol/L (3.5-5.1) 11/09/17 08:39 Chloride 107 mmol/L (98-107) 11/09/17 08:39 Carbon Dioxide 20 mmol/L (22-30) L 11/09/17 08:39 Anion Gap 10 mmol/L 11/09/17 08:39 BUN 12 mg/dL (7-17) 11/09/17 08:39 Creatinine 1.04 mg/dL (0.52-1.04) 11/09/17 08:39 Est GFR (CKD-EPI)AfAm 59 (>60 ml/min/1.73 sqM) 11/09/17 08:39 Est GFR (CKD-EPI)NonAf 51 (>60 ml/min/1.73 sqM) 11/09/17 08:39 Glucose 104 mg/dL (74-99) H 11/09/17 08:39 Plasma Lactic Acid Darrell 1.4 mmol/L (0.7-2.0) 11/08/17 09:30 Calcium 10.4 mg/dL (8.4-10.2) H 11/09/17 08:39 Magnesium 2.0 mg/dL (1.6-2.3) 11/08/17 09:30 Total Bilirubin 0.9 mg/dL (0.2-1.3) 11/08/17 09:30 AST 27 U/L (14-36) 11/08/17 09:30 ALT 28 U/L (9-52) 11/08/17 09:30 Alkaline Phosphatase 84 U/L (38-126) 11/08/17 09:30 Total Creatine Kinase 29 U/L (30-135) L 11/08/17 09:30 CK-MB (CK-2) 0.3 ng/mL (0.0-2.4) 11/08/17 09:30 CK-MB (CK-2) Rel Index 1.0 11/08/17 09:30 Troponin I <0.012 ng/mL (0.000-0.034) 11/08/17 09:30 Total Protein 6.2 g/dL (6.3-8.2) L 11/08/17 09:30 Albumin 3.5 g/dL (3.5-5.0) 11/08/17 09:30 Triglycerides 133 mg/dL (<150) 11/09/17 08:39 Cholesterol 87 mg/dL (<200) 11/09/17 08:39 LDL Cholesterol, Calc 24 mg/dL (0-99) 11/09/17 08:39 HDL Cholesterol 36 mg/dL (40-60) L 11/09/17 08:39 PTH Intact 143.4 pg/mL (14.0-72.0) H 11/09/17 08:39 Urine Color Yellow 11/08/17 09:40 Urine Appearance Cloudy (Clear) H 11/08/17 09:40 Urine pH 6.5 (5.0-8.0) 11/08/17 09:40 Ur Specific Prosperity 1.009 (1.001-1.035) 11/08/17 09:40 Urine Protein Negative (Negative) 11/08/17 09:40 Urine Glucose (UA) Negative (Negative) 11/08/17 09:40 Urine Ketones Negative (Negative) 11/08/17 09:40 Urine Blood Negative (Negative) 11/08/17 09:40 Urine Nitrite Positive (Negative) H 11/08/17 09:40 Urine Bilirubin Negative (Negative) 11/08/17 09:40 Urine Urobilinogen <2.0 mg/dL (<2.0) 11/08/17 09:40 Ur Leukocyte Esterase Large (Negative) H 11/08/17 09:40 Urine RBC 3 /hpf (0-5) 11/08/17 09:40 Urine WBC 43 /hpf (0-5) H 11/08/17 09:40 Urine WBC Clumps Moderate /hpf (None) H 11/08/17 09:40 Urine Bacteria Rare /hpf (None) H 11/08/17 09:40 Urine Mucus Rare /hpf (None) H 11/08/17 09:40 CBC & Chem 7: 11/09/17 08:39 11/09/17 08:39 Labs: Abnormal Lab Results - Last 24 Hours (Table) 11/09/17 11/09/17 Range/Units 08:39 08:39 Carbon Dioxide 20 L (22-30) mmol/L Glucose 104 H (74-99) mg/dL Calcium 10.4 H (8.4-10.2) mg/dL HDL Cholesterol 36 L (40-60) mg/dL PTH Intact 143.4 H (14.0-72.0) pg/mL Microbiology - Last 24 Hours (Table) 11/08/17 09:40 Urine Culture - Final Urine,Catheterized 11/08/17 09:30 Blood Culture - Preliminary Blood No Growth after 24 hours Microbiology 11/08/17 09:40 Urine,Catheterized Urine Culture - Final 11/08/17 09:30 Blood Blood Culture - Preliminary No Growth after 24 hours Assessment and Plan (1) Failure of outpatient treatment Current Visit: Yes Status: Acute Code(s): Z78.9 - OTHER SPECIFIED HEALTH STATUS SNOMED Code(s): 223306791 (2) Urinary tract infection Narrative/Plan: Pleasant 77-year-old woman with a long-standing history of urinary incontinence occurring after her history of uterine cancer as well as ovarian mass with extensive surgical intervention. 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 The patient however developed urinary incontinence with these issues and is required to wear a brief. She relates however that the region of urination is so quick she also at the pad to her brief period we discussed that person to wear briefs or greater risk of infections and certainly changing of them on an ongoing basis as helpful. She has seen urology, and with her complex history was not possible be a candidate for any surgical interventions and was not offered any specific medications. However with her incontinence and malfunction of her bladder she does often develop urinary infections at this time appears to have a significant urinary tract infection as noted by her progressive weakness, urinary incontinence and significant suprapubic tenderness. The patient has many ALLERGIES however does tolerate cephalosporins and has been placed on ceftriaxone and certainly feel just slightly better, was able to eat her meal without nausea or emesis. Urine culture is in process and it is discussed with the family that if she has either a resistant pathogen or pathogen that requires IV antibiotic therapy may need to bring her to the outpatient setting to receive daily courses of intravenous antibiotic therapy for which they're willing to do. An ultrasound of the kidneys and bladder will be obtained to determine if she is having any urinary retention and overflow. If this is occurring she may need to be taught how to straight cath to relieve some of these issues. Utilization of zinc- based creams to the periarea the also give her some increased comfort due to some irritation that she has at times. When she is well we'll need to get on a program to reduce urinary infections such as Cystex, she is unable to take Macrobid and she has many ALLERGIES which may also directly limit the ability to have a chronic suppressive antibiotic, she however does have a urine pH of 6.5 and is potential that she could benefit from urinary acidification to reduce her frequency of infections. Current Visit: Yes Status: Acute Code(s): N39.0 - URINARY TRACT INFECTION, SITE NOT SPECIFIED SNOMED Code(s): 15181646 (3) History of uterine cancer Current Visit: Yes Status: Acute Code(s): Z85.42 - PERSONAL HISTORY OF MALIGNANT NEOPLASM OF OTH PRT UTERUS SNOMED Code(s): 372930402
[2017-11-10] MEDS: IPRATROPIUM-ALBUTEROL 3 ML NEB INHALATION SCH ×4 (07:55→19:17)
[2017-11-10 07:58] LABS: Basophils % (A) 0 %; Eosinophils # (A) 0.1 k/uL (0-0.7); Eosinophils % (A) 2 %; HCT 44.6 % (34.0-46.0); HGB 14.2 gm/dL (11.4-16.0); Hypochromasia Slight; Lymphocytes # (A) 1.1 k/uL (1.0-4.8); Lymphocytes % (A) 21 %; MCH 28.3 pg (25.0-35.0); MCHC 31.9 g/dL (31.0-37.0); MCV 88.6 fL (80.0-100.0); Mean Platelet Volume 6.7; Monocytes # (A) 0.4 k/uL (0-1.0); Monocytes % (A) 7 %; Neutrophils # (A) 3.4 k/uL (1.3-7.7); Neutrophils % (A) 67 %; Platelet Count 186 k/uL (150-450); RBC 5.03 m/uL (3.80-5.40); RDW 13.3 % (11.5-15.5); WBC 5.1 k/uL (3.8-10.6)
[2017-11-10 09:06] LABS: Calcium 10.5 mg/dL (8.4-10.2); Potassium 4.6 mmol/L (3.5-5.1)
[2017-11-10] MEDS: ATENOLOL 25 MG TAB PO SCH (09:51)
[2017-11-10] MEDS: cefTRIAXone IN SWFI 1,000 MG/10 ML SYRINGE IVP SCH (09:51)
[2017-11-10] MEDS: MEGESTROL 40 MG TAB PO SCH (09:52)
--- NOTE | 2017-11-10 12:59 | P.PN ---
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 Patient presents this time because of generalized weakness over the last 2 days, and then the emergency room was noticed to have positive urinalysis suspicious for urinary tract infection. Patient denies any dysuria, no urgency. No change in frequency however she has urinary incontinence 11/09/2017 Patient states she feels better as with IV hydration and antibiotics. at bedside. Patient and states that they have for recurrent urinary tract infection almost once every month at least for the last 6 months. Her PCP is Dr. zelaya who planned for home health care this week for her generalized weakness however she came to the hospital. Breasts noticed to have high calcium at 10.4, she has history of high calcium at 11.0 on 03/14/2016. We will check parathyroid hormone. Continue with IV hydration. And asked for infectious disease consult for recurrence UTI 11/10/2017 Patient parathyroid hormone is 140, almost double the normal. 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 Her generalized weak is mostly related to her dehydration from hypercalcemia and urine incontinence. Patient strength came back to normal with IV hydration lower IV fluids. Objective - Vital Signs Vital signs: Vital Signs Temp 97.6 F 11/10/17 07:00 Pulse 74 11/10/17 07:00 Resp 16 11/10/17 07:00 BP 144/84 11/10/17 07:00 Pulse Ox 93 L 11/10/17 07:00 Intake & Output 11/09/17 11/10/17 11/10/17 18:59 06:59 18:59 Intake Total 200 Balance 200 Intake: Oral 200 Other: Voiding Method Diaper Diaper Incontinent Incontinent # Voids 1 2 - Exam GENERAL: The patient is alert and oriented x3, not in any acute distress. Well developed, well nourished. HEENT: Pupils are round and equally reacting to light. EOMI. No scleral icterus. No conjunctival pallor. Normocephalic, atraumatic. No pharyngeal erythema. No thyromegaly. CARDIOVASCULAR: S1 and S2 present. No murmurs, rubs, or gallops. PULMONARY: Chest is clear to auscultation, no wheezing or crackles. ABDOMEN: Soft, nontender, nondistended, normoactive bowel sounds. No palpable organomegaly. MUSCULOSKELETAL: No joint swelling or deformity. EXTREMITIES: No cyanosis, clubbing, or pedal edema. NEUROLOGICAL: Gross neurological examination did not reveal any focal deficits. SKIN: No rashes. - Labs CBC & Chem 7: 11/10/17 07:24 11/10/17 07:24 Labs: Abnormal Lab Results - Last 24 Hours (Table) 11/09/17 11/10/17 Range/Units 08:39 07:24 Chloride 109 H (98-107) mmol/L Calcium 10.5 H (8.4-10.2) mg/dL PTH Intact 143.4 H (14.0-72.0) pg/mL Microbiology - Last 24 Hours (Table) 11/08/17 09:30 Blood Culture - Preliminary Blood No Growth after 48 hours 11/08/17 09:40 Urine Culture - Final Urine,Catheterized Assessment and Plan Plan: -Urinary tract infection, continue with antibiotics, patient is started on ceftriaxone. Follow-up urine culture: No growth. ID consult: Pending. Ultrasound of the renal is pending -Chronic kidney disease, stage III -Hypercalcemia, continue with IV hydration, history of hypercalcemia in the past. We'll check parathyroid hormone: 142. -Chronic A. fib, continue with xarelto .HR controlled -Hypertension continue with same treatment -Hyperlipidemia continue same treatment DVT prophylaxis on XARELTO GI prophylaxis on Pepcid
--- NOTE | 2017-11-10 13:10 | US ---
EXAMINATION TYPE: US kidneys/renal and bladder DATE OF EXAM: 11/10/2017 COMPARISON: CT 02/17/2016 CLINICAL HISTORY: urinary obstruction retention. UTI per patient EXAM MEASUREMENTS: Right Kidney: 8.5 x 3.6 x 3.4 cm Left Kidney: 9.6 x 4.9 x 4.0 cm Right Kidney: No hydronephrosis. Measuring small, corticomedullary thinning. Possible cyst measuring 1.5 x 1.6 x 1.4 cm lower pole Left Kidney: No hydronephrosis. Echogenic foci lower pole measuring 0.4 cm. Possible small cyst visua lized laterally measuring 0.6 cm Bladder: wnl Bilateral Jets seen: Yes IMPRESSION: 1. Nonobstructing nephrolithiasis left kidney. 2. Renal cortical cysts.
[2017-11-10] MEDS: RIVAROXABAN 20 MG TAB PO SCH (21:11)
[2017-11-10] MEDS: ATORVASTATIN 10 MG TAB PO SCH (21:11)
[2017-11-10] MEDS: amLODIPine 5 MG TAB PO SCH (21:11)
--- NOTE | 2017-11-10 23:47 | P.PN ---
Subjective Progress Note Date: 11/10/17 7-year-old female presents from her home environment not feeling well with profound increased weakness, increasing difficulties trying to get out of bed and worsening of her underlying urinary discomforts. The patient's daughter is present and helps with the history. The patient has been having a decline of her status over the last several months. She does live in the family home with her who is able to care for her. He has had significant health challenges but is now doing well, and there is the daughter who was also able to help. The patient has many ALLERGIES which is making it somewhat difficult to treat her frequent urinary tract infections. In the past was doing relatively well on Macrobid but with underlying lung disease is no longer able to take this. Since that has had more frequent urinary infections. At this time she relates that she was having increasing frequency, was having difficulties with discomfort in the suprapubic area. She is completely incontinent and is unaware of when she urinates except it is quite predictable that when she arises from a sitting position she gets a gush of urine. She wears briefs as well as a pad because the rapidity of the urine overwhelms the brief and she saturates chairs and clothing and constantly has added a pad to the brief. She at this time remains very weak. It is related that the progressive weakness was a major determine her for her to come to hospital. She does not believe that she's had high fever she often has chills but no rigors. She does feel quite poorly compared to her baseline, was able to eat. She has no sensation of the urination which has gone on for many years, it occurred after her significant pelvic pathology of uterine cancer and large ovarian mass that required surgical resection, after which she has been incontinent. 11/10/2017 patient has improved with current antibiotic therapy of Rocephin.she is not having further fever. Her severe fatigue and malaise has improved The suprapubic discomfort has alsoimproved. Daughter is pleased with improvement Objective - Vital Signs Vital signs: Vital Signs Temp 98.0 F 11/10/17 22:30 Pulse 82 11/10/17 22:30 Resp 16 11/10/17 22:30 BP 143/78 11/10/17 22:30 Pulse Ox 95 11/10/17 22:30 Intake & Output 11/10/17 11/10/1718 06:59 18:59 06:59 Intake Total 600 Balance 600 Intake: Oral 600 Other: Voiding Method Diaper Incontinent # Voids 2 1 1 - Exam Pleasant 77-year-old woman who is a modest historian per daughter is helpful and filling in details HEENT: Anicteric conjunctiva are pink and moist nasal mucosa grossly intact without significant lesions, there is no thrush. Upper and lower dentures Neck: The neck is supple without significant lymphadenopathy or thyromegaly. Lungs: Good bilateral air entry without significant crackles or wheezing. There is no significant bronchial sounds. There is no egophony or dullness. Heart: Regular rate and rhythm with an audible S1-S2, no S3 no S4. There is no significant murmur click or rub, PMI was nondisplaced. Abdomen: Doughy in consistency, Positive bowel sounds soft and nontender without palpable masses or organomegaly. There was no guarding or rebound. There is no flank tenderness but there iimprovement of the suprapubic tenderness on exam Extremities: The upper extremities have excellent pulses they are symmetric, no significant petechiae or telangiectasia. No splinter hemorrhages were noted. The lower extremities have symmetric bilateral lower extremity edema which apparently is quite common in persistent, no ulcerations are seen. The peripheral pulses were 2+ and symmetric. Neuro: Awake alert oriented to person place and time. Does have some minimal difficulties with memory. The daughter is very helpful and filling out this specific details, but does not have acute gross focal sensory motor deficits. - Labs CBC & Chem 7: 11/10/17 07:24 11/10/17 07:24 Labs: Abnormal Lab Results - Last 24 Hours (Table) 11/10/17 Range/Units 07:24 Chloride 109 H (98-107) mmol/L Calcium 10.5 H (8.4-10.2) mg/dL Microbiology - Last 24 Hours (Table) 11/08/17 09:30 Blood Culture - Preliminary Blood No Growth after 48 hours Laboratory Results WBC 5.1 k/uL (3.8-10.6) 11/10/17 07:24 RBC 5.03 m/uL (3.80-5.40) 11/10/17 07:24 Hgb 14.2 gm/dL (11.4-16.0) 11/10/17 07:24 Hct 44.6 % (34.0-46.0) 11/10/17 07:24 MCV 88.6 fL (80.0-100.0) 11/10/17 07:24 MCH 28.3 pg (25.0-35.0) 11/10/17 07:24 MCHC 31.9 g/dL (31.0-37.0) 11/10/17 07:24 RDW 13.3 % (11.5-15.5) 11/10/17 07:24 Plt Count 186 k/uL (150-450) 11/10/17 07:24 Neutrophils % 67 % 11/10/17 07:24 Lymphocytes % 21 % 11/10/17 07:24 Monocytes % 7 % 11/10/17 07:24 Eosinophils % 2 % 11/10/17 07:24 Basophils % 0 % 11/10/17 07:24 Neutrophils # 3.4 k/uL (1.3-7.7) 11/10/17 07:24 Lymphocytes # 1.1 k/uL (1.0-4.8) 11/10/17 07:24 Monocytes # 0.4 k/uL (0-1.0) 11/10/17 07:24 Eosinophils # 0.1 k/uL (0-0.7) 11/10/17 07:24 Basophils # 0.0 k/uL (0-0.2) 11/10/17 07:24 Hypochromasia Slight 11/10/17 07:24 PT 12.4 sec (9.0-12.0) H 11/08/17 09:30 INR 1.3 (<1.2) H 11/08/17 09:30 APTT 27.5 sec (22.0-30.0) 11/08/17 09:30 Sodium 139 mmol/L (137-145) 11/10/17 07:24 Potassium 4.6 mmol/L (3.5-5.1) 11/10/17 07:24 Chloride 109 mmol/L (98-107) H 11/10/17 07:24 Carbon Dioxide 22 mmol/L (22-30) 11/10/17 07:24 Anion Gap 8 mmol/L 11/10/17 07:24 BUN 10 mg/dL (7-17) 11/10/17 07:24 Creatinine 0.97 mg/dL (0.52-1.04) 11/10/17 07:24 Est GFR (CKD-EPI)AfAm 65 (>60 ml/min/1.73 sqM) 11/10/17 07:24 Est GFR (CKD-EPI)NonAf 56 (>60 ml/min/1.73 sqM) 11/10/17 07:24 Glucose 96 mg/dL (74-99) 11/10/17 07:24 Plasma Lactic Acid Darrell 1.4 mmol/L (0.7-2.0) 11/08/17 09:30 Calcium 10.5 mg/dL (8.4-10.2) H 11/10/17 07:24 Magnesium 2.0 mg/dL (1.6-2.3) 11/08/17 09:30 Total Bilirubin 0.9 mg/dL (0.2-1.3) 11/08/17 09:30 AST 27 U/L (14-36) 11/08/17 09:30 ALT 28 U/L (9-52) 11/08/17 09:30 Alkaline Phosphatase 84 U/L (38-126) 11/08/17 09:30 Total Creatine Kinase 29 U/L (30-135) L 11/08/17 09:30 CK-MB (CK-2) 0.3 ng/mL (0.0-2.4) 11/08/17 09:30 CK-MB (CK-2) Rel Index 1.0 11/08/17 09:30 Troponin I <0.012 ng/mL (0.000-0.034) 11/08/17 09:30 Total Protein 6.2 g/dL (6.3-8.2) L 11/08/17 09:30 Albumin 3.5 g/dL (3.5-5.0) 11/08/17 09:30 Triglycerides 133 mg/dL (<150) 11/09/17 08:39 Cholesterol 87 mg/dL (<200) 11/09/17 08:39 LDL Cholesterol, Calc 24 mg/dL (0-99) 11/09/17 08:39 HDL Cholesterol 36 mg/dL (40-60) L 11/09/17 08:39 PTH Intact 143.4 pg/mL (14.0-72.0) H 11/09/17 08:39 Urine Color Yellow 11/08/17 09:40 Urine Appearance Cloudy (Clear) H 11/08/17 09:40 Urine pH 6.5 (5.0-8.0) 11/08/17 09:40 Ur Specific [place] 1.009 (1.001-1.035) 11/08/17 09:40 Urine Protein Negative (Negative) 11/08/17 09:40 Urine Glucose (UA) Negative (Negative) 11/08/17 09:40 Urine Ketones Negative (Negative) 11/08/17 09:40 Urine Blood Negative (Negative) 11/08/17 09:40 Urine Nitrite Positive (Negative) H 11/08/17 09:40 Urine Bilirubin Negative (Negative) 11/08/17 09:40 Urine Urobilinogen <2.0 mg/dL (<2.0) 11/08/17 09:40 Ur Leukocyte Esterase Large (Negative) H 11/08/17 09:40 Urine RBC 3 /hpf (0-5) 11/08/17 09:40 Urine WBC 43 /hpf (0-5) H 11/08/17 09:40 Urine WBC Clumps Moderate /hpf (None) H 11/08/17 09:40 Urine Bacteria Rare /hpf (None) H 11/08/17 09:40 Urine Mucus Rare /hpf (None) H 11/08/17 09:40 Microbiology 11/08/17 09:30 Blood Blood Culture - Preliminary No Growth after 48 hours 11/08/17 09:40 Urine,Catheterized Urine Culture - Final Assessment and Plan (1) Failure of outpatient treatment Current Visit: Yes Status: Acute Code(s): Z78.9 - OTHER SPECIFIED HEALTH STATUS SNOMED Code(s): 571798919 (2) Urinary tract infection Narrative/Plan: Pleasant 77-year-old woman with a long-standing history of urinary incontinence occurring after her history of uterine cancer as well as ovarian mass with extensive surgical intervention. 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 The patient however developed urinary incontinence with these issues and is required to wear a brief. She relates however that the region of urination is so quick she also at the pad to her brief period we discussed that person to wear briefs or greater risk of infections and certainly changing of them on an ongoing basis as helpful. She has seen urology, and with her complex history was not possible be a candidate for any surgical interventions and was not offered any specific medications. However with her incontinence and malfunction of her bladder she does often develop urinary infections at this time appears to have a significant urinary tract infection as noted by her progressive weakness, urinary incontinence and significant suprapubic tenderness. The patient has many ALLERGIES however does tolerate cephalosporins and has been placed on ceftriaxone and certainly feel just slightly better, was able to eat her meal without nausea or emesis. Urine culture is in process and it is discussed with the family that if she has either a resistant pathogen or pathogen that requires IV antibiotic therapy may need to bring her to the outpatient setting to receive daily courses of intravenous antibiotic therapy for which they're willing to do. An ultrasound of the kidneys and bladder will be obtained to determine if she is having any urinary retention and overflow. If this is occurring she may need to be taught how to straight cath to relieve some of these issues. Utilization of zinc- based creams to the periarea the also give her some increased comfort due to some irritation that she has at times. When she is well we'll need to get on a program to reduce urinary infections such as Cystex, she is unable to take Macrobid and she has many ALLERGIES which may also directly limit the ability to have a chronic suppressive antibiotic, she however does have a urine pH of 6.5 and is potential that she could benefit from urinary acidification to reduce her frequency of infections. 11/10/2017 patient has improved considerably through the day with hydrationand antibiotic therapy.plan will be for a week of ceftriaxone in the outpatient clinic, the family relates they can bring Her to the clinic without difficultly orders sent to pharmacy. have arranged for a midline catheter Current Visit: Yes Status: Acute Code(s): N39.0 - URINARY TRACT INFECTION, SITE NOT SPECIFIED SNOMED Code(s): 98474383 (3) History of uterine cancer Current Visit: Yes Status: Acute Code(s): Z85.42 - PERSONAL HISTORY OF MALIGNANT NEOPLASM OF OTH PRT UTERUS SNOMED Code(s): 041537974
[2017-11-11] MEDS: IPRATROPIUM-ALBUTEROL 3 ML NEB INHALATION SCH ×2 (07:00→11:02)
[2017-11-11 08:29] LABS: Basophils % (A) 0 %; Eosinophils # (A) 0.1 k/uL (0-0.7); Eosinophils % (A) 3 %; HCT 42.1 % (34.0-46.0); HGB 13.4 gm/dL (11.4-16.0); Lymphocytes # (A) 1.5 k/uL (1.0-4.8); Lymphocytes % (A) 30 %; MCHC 31.7 g/dL (31.0-37.0); MCV 88.2 fL (80.0-100.0); Mean Platelet Volume 6.5; Monocytes # (A) 0.4 k/uL (0-1.0); Monocytes % (A) 8 %; Neutrophils # (A) 2.9 k/uL (1.3-7.7); Neutrophils % (A) 57 %; Platelet Count 183 k/uL (150-450); RBC 4.77 m/uL (3.80-5.40); RDW 13.3 % (11.5-15.5)
[2017-11-11 08:40] LABS: Calcium 10.3 mg/dL (8.4-10.2); Potassium 4.6 mmol/L (3.5-5.1)
[2017-11-11] MEDS: cefTRIAXone IN SWFI 1,000 MG/10 ML SYRINGE IVP SCH (09:04)
[2017-11-11] MEDS: ATENOLOL 25 MG TAB PO SCH (09:04)
[2017-11-11] MEDS: MEGESTROL 40 MG TAB PO SCH (09:04)
[2017-11-11] MEDS ORDERED: BISACODYL 10 MG SUPP RECTAL PRN (09:58)
[2017-11-11] MEDS ORDERED: SENNOSIDES-DOCUSATE SODIUM 1 EACH TAB PO SCH (10:00)
--- NOTE | 2017-11-11 12:33 | P.GSCN ---
History of Present Illness Consult date: 11/11/17 History of present illness: 77-year-old female initially presented to the emergency department with complaints of weakness. 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 On workup, the patient was found to have a urinary tract infection. The patient was also evaluated by infectious disease. During her further workup, the patient was found to have elevated calcium levels. Secondary to this further workup was done with parathyroid and her PTH was noted to be quite elevated. She was also found to have nephrolithiasis. The patient denies any recent fractures. She does have urinary incontinence and does not know how much she urinates in the day. She denies any abdominal pain. She does complain of weakness. She denies any nausea vomiting or loss of appetite at this time. Currently she has no additional complaints. Review of Systems All systems: negative Past Medical History Past Medical History: Atrial Fibrillation, Cancer, Hyperlipidemia, Hypertension , Pneumonia Additional Past Medical History / Comment(s): HX OF "uterine cancer mets to lung and one ovary- SX ONLY NEVER HAD ANY CHEMO OR RADIATION" CHRONIC COUGH, URINARY INCONTINENCE STATES WEARS PULL UP, bronchitis,PAST MIGRAINES, HAS EPISODIC DIARRHEA,RECURRING UTI'S History of Any Multi-Drug Resistant Organisms: None Reported Past Surgical History: Hysterectomy Additional Past Surgical History / Comment(s): RT LUNG WEDGE SECTION REMOVED FROM UPPER AND LOWER, STACY CATARACT, BRONCHOSOCPY Past Anesthesia/Blood Transfusion Reactions: No Reported Reaction Additional Psychological History / Comment(s): and lives in the family home with her who is the circuit design engineer. 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 The patient herself is not a tobacco smoker, does not use alcohol or recreational drugs. She has no experience. Is a retired [employer] no international travel. No animals in the home Smoking Status: Never smoker - Past Family History Father Additional Family Medical History / Comment(s): "HEART PROBLEMS Mother Family Medical History: Congestive Heart Failure (CHF) Brother(s) Family Medical History: Cancer, Myocardial Infarction ([place]) Medications and Allergies Home Medications Medication Instructions Recorded Confirmed Type Atenolol 25 mg PO QAM 03/09/16 11/08/17 History amLODIPine/ATORVASTATIN 1 tab PO HS 03/09/16 11/08/17 History [amLODIPine/ATORVASTATIN 5-10 mg] Cyanocobalamin [Vitamin B-12 2,000 mcg SQ Q30D 11/08/17 11/08/17 History Injection] Ipratropium-Albuterol Nebulize 3 ml INHALATION RT-QID PRN 11/08/17 11/08/17 History [Duoneb 0.5 mg-3 mg/3 ml Soln] Megestrol [Megace] 40 mg PO DAILY 11/08/17 11/08/17 History Rivaroxaban [Xarelto] 20 mg PO DAILY 11/08/17 11/08/17 History cefTRIAXone [Rocephin] 1,000 mg IVPB DAILY #7 vial 11/10/17 Rx Allergies Allergy/AdvReac Type Severity Reaction Status Date / Time ciprofloxacin [From Cipro] Allergy Anaphylaxis Verified 11/08/17 10:19 nitrofurantoin Allergy Dyspnea Verified 11/08/17 10:19 [From Macrobid] sulfamethoxazole Allergy Rash/Hives Verified 11/08/17 09:11 [From Bactrim] trimethoprim [From Bactrim] Allergy Rash/Hives Verified 11/08/17 09:11 amoxicillin [From Augmentin] AdvReac Nausea & Verified 11/08/17 10:19 Vomiting clavulanic acid AdvReac Nausea & Verified 11/08/17 10:19 [From Augmentin] Vomiting levofloxacin [From Levaquin] AdvReac Nausea & Verified 11/08/17 10:19 Vomiting Surgical - Exam Osteopathic Statement: *. No significant issues noted on an osteopathic structural exam other than those noted in the History and Physical/Consult. Vital Signs Temp Pulse Resp BP Pulse Ox 98.3 F 75 18 103/71 96 11/08/17 09:04 11/08/17 09:04 11/08/17 09:04 11/08/17 09:04 11/08/17 09:04 - General well nourished, no distress - Eyes normal ocular movement - ENT decreased hearing - Neck trachea midline - Respiratory No difficulty with respiration - Abdomen Soft, nontender, nondistended, no rebound, guarding - Psychiatric oriented to time, oriented to person, oriented to place Results - Labs 11/11/17 08:02 11/11/17 08:02 Abnormal Lab Results - Last 24 Hours (Table) 11/11/17 Range/Units 08:02 Chloride 109 H (98-107) mmol/L Calcium 10.3 H (8.4-10.2) mg/dL Microbiology - Last 24 Hours (Table) 11/08/17 09:30 Blood Culture - Preliminary Blood No Growth after 72 hours Diabetes panel 11/11/17 Range/Units 08:02 Sodium 138 (137-145) mmol/L Potassium 4.6 (3.5-5.1) mmol/L Chloride 109 H (98-107) mmol/L Carbon Dioxide 23 (22-30) mmol/L BUN 10 (7-17) mg/dL Creatinine 1.02 (0.52-1.04) mg/dL Glucose 91 (74-99) mg/dL Calcium 10.3 H (8.4-10.2) mg/dL Calcium panel 11/11/17 Range/Units 08:02 Calcium 10.3 H (8.4-10.2) mg/dL Pituitary panel 11/11/17 Range/Units 08:02 Sodium 138 (137-145) mmol/L Potassium 4.6 (3.5-5.1) mmol/L Chloride 109 H (98-107) mmol/L Carbon Dioxide 23 (22-30) mmol/L BUN 10 (7-17) mg/dL Creatinine 1.02 (0.52-1.04) mg/dL Glucose 91 (74-99) mg/dL Calcium 10.3 H (8.4-10.2) mg/dL Adrenal panel 11/11/17 Range/Units 08:02 Sodium 138 (137-145) mmol/L Potassium 4.6 (3.5-5.1) mmol/L Chloride 109 H (98-107) mmol/L Carbon Dioxide 23 (22-30) mmol/L BUN 10 (7-17) mg/dL Creatinine 1.02 (0.52-1.04) mg/dL Glucose 91 (74-99) mg/dL Calcium 10.3 H (8.4-10.2) mg/dL Assessment and Plan (1) Elevated parathyroid hormone Narrative/Plan: Due to finding of elevated PTH level, the patient should have a full endocrine workup. This can be done as an outpatient. I do recommend that the patient is sent to an clean energy policy analyst for any further laboratory workup for diagnosis of type of hyperparathyroidism. Any imaging can be done as an outpatient as well with possible sestamibi scan and/or ultrasound of the parathyroids. At this time, no acute surgical intervention is planned. Surgical treatment would be dependent on endocrine workup. Thank you for this consultation, I look forward in providing in this patient's care. Current Visit: Yes Status: Acute Code(s): E34.9 - ENDOCRINE DISORDER, UNSPECIFIED SNOMED Code(s): 0940589
[2017-11-11] MEDS ORDERED: LIDOCAINE 1% (PF) 10MG/ML VIAL SQ ONE (14:16)
[2017-11-11 15:06] VITALS: BP 121/74; PULSE 74; RESP 20; TEMP 98.3
--- NOTE | 2017-11-11 15:25 | IR ---
PICC LINE PLACEMENT: HISTORY: Infection requiring long-term antibiotic therapy PROCEDURE: Ultrasound and fluoroscopic guidance of PICC line placement. COMPLICATIONS: None ANESTHESIA: 1. 1% Lidocaine locally. FINDINGS/TECHNIQUE: The procedure was explained to the patient. The risks, complications, benefits and alternatives were discussed and any questions were answered. Informed consent was obtained. The patient was placed supine on the fluoroscopic table and prepped and draped in the usual sterile [facility] ion. Utilizing a 21 gauge needle and sonographic and fluoroscopic guidance, access in the vein was achieved and there is placement of a 0.018 guidewire. The vein is patent. A 4-F sheath was placed o pavan the guidewire. The guidewire and dilator were removed and a 4-F. PICC line was placed through th e sheath with the tip at the level of the SVC. The sheath was removed, the catheter was flushed and sutured into position. The patient was stable throughout the procedure and remained stable upon disc harge from the Department of Radiology. The vein puncture was patent under ultrasound. A george scale image was obtained to document patency of the vein punctured. All elements of the maximal barrier technique were utilized. FLUOROSCOPY TIME: 0.2 minute, one image submitted IMPRESSION: Successful PICC line placement under ultrasound and fluoroscopic guidance.
== END 2017-11-11 15:55 | disposition home health service (06) | DRG 690 ==
LOC: EC 09:00 → INTOOBSV 11:20 → 4MS4W 11:20 → OBSVTOIN 11:20 → 4MS4W 13:50
PROVIDERS: ADMIT Internal Medicine; ATTEND Internal Medicine
PROC: 02HV33Z Insertion of Infusion Device into Superior Vena Cava, Percutaneous Approach (ICD-10-PCS; principal; 2017-11-11 14:00)
DX: N39.0 Urinary tract infection, site not specified (principal); N25.1 Nephrogenic diabetes insipidus; I48.2 Chronic atrial fibrillation; E86.0 Dehydration; N18.3 Chronic kidney disease, stage 3 (moderate); E83.52 Hypercalcemia; I12.9 Hypertensive chronic kidney disease with stage 1 through stage 4 chronic kidney disease, or unspecified chronic kidney disease; E78.5 Hyperlipidemia, unspecified; E21.3 Hyperparathyroidism, unspecified; N20.0 Calculus of kidney; R32 Unspecified urinary incontinence; Z79.01 Long term (current) use of anticoagulants; Z79.818 Long term (current) use of other agents affecting estrogen receptors and estrogen levels; Z79.899 Other long term (current) drug therapy; Z85.118 Personal history of other malignant neoplasm of bronchus and lung; Z90.710 Acquired absence of both cervix and uterus; Z90.2 Acquired absence of lung [part of]; Z87.440 Personal history of urinary (tract) infections; Z98.42 Cataract extraction status, left eye; Z98.41 Cataract extraction status, right eye; Z87.01 Personal history of pneumonia (recurrent); Z85.42 Personal history of malignant neoplasm of other parts of uterus; Z88.1 Allergy status to other antibiotic agents; Z88.0 Allergy status to penicillin; Z88.2 Allergy status to sulfonamides; Z88.8 Allergy status to other drugs, medicaments and biological substances; Z82.49 Family history of ischemic heart disease and other diseases of the circulatory system; Z80.9 Family history of malignant neoplasm, unspecified
CPT/HCPCS: 36415; 36569; 71046; 76770; 76937; 77001; 80048; 80053; 80061; 81001; 82550; 82553; 83605; 83735; 83970; 84484; 85025; 85610; 85730; 87040; 87086; 93005; 96361; 96365; 96366; 96375; 96376; 99285

== ENCOUNTER 2017-12-04 04:11 | Inpatient (IN) | payer MEDICARE, OTHER ==
--- NOTE | 2017-12-04 04:31 | ED ---
General Adult HPI - General Chief complaint: Fall Stated complaint: Fall Time Seen by Provider: 12/04/17 04:13 Source: patient, EMS, RN notes reviewed, old records reviewed Mode of arrival: EMS Limitations: physical limitation - History of Present Illness Initial comments: 77-year-old female presents status post fall. Patient was using the bathroom in the middle of the night, she fell forward she did have head trauma. There is no loss consciousness. She is currently on anticoagulation for history of atrial fibrillation. Denies neck pain. Denies chest pain or abdominal pain. Denies any preceding symptoms prior to the fall. She is complaining of some bilateral hip pain. According to family she is newly bedbound at baseline. She does walk with assistance and a walker although this is very minimal. EMS denies any scalp laceration or significant bleeding. - Related Data Home Medications Medication Instructions Recorded Confirmed Atenolol 25 mg PO QAM 03/09/16 11/08/17 amLODIPine/ATORVASTATIN 1 tab PO HS 03/09/16 11/08/17 [amLODIPine/ATORVASTATIN 5-10 mg] Cyanocobalamin [Vitamin B-12 2,000 mcg SQ Q30D 11/08/17 11/08/17 Injection] Ipratropium-Albuterol Nebulize 3 ml INHALATION RT-QID PRN 11/08/17 11/08/17 [Duoneb 0.5 mg-3 mg/3 ml Soln] Megestrol [Megace] 40 mg PO DAILY 11/08/17 11/08/17 Rivaroxaban [Xarelto] 20 mg PO DAILY 11/08/17 11/08/17 Previous Rx's Medication Instructions Recorded cefTRIAXone [Rocephin] 1,000 mg IVPB DAILY #7 vial 11/10/17 Sennosides-Docusate Sodium 1 each PO BID #4 tab 11/11/17 [Senokot-S] Allergies Allergy/AdvReac Type Severity Reaction Status Date / Time ciprofloxacin [From Cipro] Allergy Anaphylaxis Verified 11/08/17 10:19 nitrofurantoin Allergy Dyspnea Verified 11/08/17 10:19 [From Macrobid] sulfamethoxazole Allergy Rash/Hives Verified 11/08/17 09:11 [From Bactrim] trimethoprim [From Bactrim] Allergy Rash/Hives Verified 11/08/17 09:11 amoxicillin [From Augmentin] AdvReac Nausea & Verified 11/08/17 10:19 Vomiting clavulanic acid AdvReac Nausea & Verified 11/08/17 10:19 [From Augmentin] Vomiting levofloxacin [From Levaquin] AdvReac Nausea & Verified 11/08/17 10:19 Vomiting Review of Systems ROS Statement: Those systems with pertinent positive or pertinent negative responses have been documented in the HPI. ROS Other: All systems not noted in ROS Statement are negative. Past Medical History Past Medical History: Atrial Fibrillation, Cancer, Hyperlipidemia, Hypertension , Pneumonia Additional Past Medical History / Comment(s): HX OF "uterine cancer mets to lung and one ovary- SX ONLY NEVER HAD ANY CHEMO OR RADIATION" CHRONIC COUGH, URINARY INCONTINENCE STATES WEARS PULL UP, bronchitis,PAST MIGRAINES, HAS EPISODIC DIARRHEA,RECURRING UTI'S History of Any Multi-Drug Resistant Organisms: None Reported Past Surgical History: Hysterectomy Additional Past Surgical History / Comment(s): RT LUNG WEDGE SECTION REMOVED FROM UPPER AND LOWER, STACY CATARACT, BRONCHOSOCPY Past Anesthesia/Blood Transfusion Reactions: No Reported Reaction Past Psychological History: No Psychological Hx Reported Smoking Status: Never smoker Past Alcohol Use History: None Reported Past Drug Use History: None Reported - Past Family History Father Additional Family Medical History / Comment(s): "HEART PROBLEMS Mother Family Medical History: Congestive Heart Failure (CHF) Brother(s) Family Medical History: Cancer, Myocardial Infarction (DC) General Exam Limitations: physical limitation General appearance: alert, in no apparent distress Head exam: Present: atraumatic, normocephalic Eye exam: Present: normal appearance, PERRL, EOMI ENT exam: Present: normal exam Neck exam: Present: normal inspection. Absent: tenderness, meningismus Respiratory exam: Present: normal lung sounds bilaterally. Absent: respiratory distress, wheezes, rales Cardiovascular Exam: Present: regular rate, irregular rhythm GI/Abdominal exam: Present: soft. Absent: distended, tenderness, guarding Extremities exam: Present: normal inspection, normal capillary refill. Absent: tenderness, pedal edema, joint swelling, calf tenderness Neurological exam: Present: alert, oriented X3, CN II-XII intact, motor sensory deficit Psychiatric exam: Present: normal affect, normal mood Skin exam: Present: warm, dry, intact. Absent: cyanosis, diaphoretic Course Vital Signs 12/04/17 04:12 Temperature 97.9 F Pulse Rate 89 Respiratory 17 Rate Blood Pressure 136/89 O2 Sat by Pulse 97 Oximetry EKG Findings - EKG Comments: EKG Findings:: EKG: Atrial fibrillation, left axis deviation, no ST segment elevation or depression, rate of 83, QRS duration 72, QTC 397 Medical Decision Making - Medical Decision Making 77-year-old female presents status post fall with minor head injury. She is complaining of some mild bilateral hip pain. X-ray of the pelvis is negative for any acute fracture or dislocation. CT head is obtained, negative for intracranial hemorrhage or mass effect, CT cervical spine is negative for acute fracture subluxation. Chest x-ray negative for any bony abnormality or acute cardiopulmonary process. Patient is given [place] in the emergency department for her hip pain. She is at baseline according to her daughter. Patient has a good support system and will be discharged home. Return with worsening or changing symptoms. Disposition Clinical Impression: Fall Disposition: HOME SELF-CARE Condition: Good Instructions: Fall Prevention for Older Adults (ED) Is patient prescribed a controlled substance at d/c from ED?: No Referrals: [place] MD [Primary Care Provider] - 1-2 days Time of Disposition: 05:37
--- NOTE | 2017-12-04 05:17 | CT ---
EXAM: CT Head Without Intravenous Contrast CLINICAL HISTORY: ITS.REASON CT Reason: Pain TECHNIQUE: Axial computed tomography images of the head/brain without intravenous contrast. CTDI is 60.30 mGy and DLP is 1090.40 mGy-cm. This CT exam was performed using one or more of the following dose reduction techniques: automated exposure control, adjustment of the mA and/or kV according to patient size, and/or use of iterative reconstruction technique. COMPARISON: No relevant prior studies available. FINDINGS: Brain: No acute intracranial hemorrhage, mass effect or edema. No evidence of acute cortical stroke. Periventricular small vessel ischemic change. No midline shift or hydrocephalus. Diffuse parenchymal atrophy. Old lacunar infarcts involving the right and left basal ganglia. Ventricles: See above. Bones/joints: Unremarkable. No acute fracture. Soft tissues: Unremarkable. Vasculature: Dense atherosclerotic calcifications of the carotid siphon arteries.. Sinuses: Unremarkable as visualized. No acute sinusitis. Mastoid air cells: Visualized sinuses show scattered mucosal thickening and mastoid air cells are clear. IMPRESSION: No evidence of acute intracranial pathology. Diffuse involutional changes and chronic ischemic small vessel white matter disease. EXAM: CT Cervical Spine Without Intravenous Contrast CLINICAL HISTORY: ITS.REASON CT Reason: Pain TECHNIQUE: Axial computed tomography images of the cervical spine without intravenous contrast. CTDI is 18.70 mGy and DLP is 301.50 mGy-cm This CT exam was performed using one or more of the following dose reduction techniques: automated exposure control, adjustment of the mA and/or kV according to patient size, and/or use of iterative reconstruction technique. COMPARISON: No relevant prior studies available. FINDINGS: Vertebrae: No evidence of acute or healing fracture or malalignment. Discs/spinal canal/neural foramina: Multilevel spine degenerative changes. No critical central canal stenosis or apical pneumothorax. Soft tissues: Unremarkable. Thyroid: 2 cm ovoid hypodense right thyroid nodule. This is indeterminate and can be further assessed with ultrasound, if new. IMPRESSION: No evidence of acute or healing fracture or malalignment. 2 cm ovoid hypodense right thyroid nodule. This is indeterminate and can be further assessed with ultrasound, if new.
--- NOTE | 2017-12-04 05:19 | XR ---
EXAM: XR Pelvis, 1 or 2 Views CLINICAL HISTORY: ITS.REASON XR Reason: Pain TECHNIQUE: Frontal view of the pelvis. COMPARISON: 09/19/16 pelvis radiography. FINDINGS: Bones/joints: No acute or healing fracture or malalignment. No osteonecrosis. At least moderate right hip degenerative changes, more mild on the left side. Degenerative changes of the sacroiliac joints and lumbar spine are incompletely imaged. Soft tissues: For many soft tissuess are normal. Vasculature: Numerou phleboliths in the pelvis. IMPRESSION: No acute or healing fracture or malalignment.
--- NOTE | 2017-12-04 05:21 | XR ---
EXAM: XR Chest, 1 View CLINICAL HISTORY: ITS.REASON XR Reason: Pain TECHNIQUE: Frontal view of the chest. COMPARISON: No relevant prior studies available. FINDINGS: Lungs: Relatively mild fibrotic changes at the bases. No consolidation, pleural effusion or pneumothorax. Pleural space: See above. Heart: Enlarged cardiac silhouette concerning for cardiomegaly and/or pericardial effusion. Mediastinum: Unremarkable. Bones/joints: Unremarkable. IMPRESSION: No acute cardiopulmonary disease. Enlarged cardiac silhouette which may represent cardiomegaly.
[2017-12-04] MEDS ORDERED: HYDROcodone/APAP 5-325MG 1 EACH TAB PO STA (05:29)
[2017-12-04 06:43] LABS: Glucose,Whole Blood 117 mg/dL (75-99)
[2017-12-04 07:01] LABS: Basophils % (A) 0 %; Eosinophils # (A) 0.1 k/uL (0-0.7); Eosinophils % (A) 1 %; HCT 47.9 % (34.0-46.0); HGB 15.4 gm/dL (11.4-16.0); Lymphocytes # (A) 2.2 k/uL (1.0-4.8); Lymphocytes % (A) 15 %; MCH 28.5 pg (25.0-35.0); MCHC 32.1 g/dL (31.0-37.0); MCV 88.7 fL (80.0-100.0); Monocytes # (A) 0.6 k/uL (0-1.0); Monocytes % (A) 4 %; Neutrophils # (A) 12.1 k/uL (1.3-7.7); Neutrophils % (A) 80 %; Platelet Count 194 k/uL (150-450); WBC 15.1 k/uL (3.8-10.6)
[2017-12-04 07:08] LABS: Albumin 4.1 g/dL (3.5-5.0); Calcium 11.3 mg/dL (8.4-10.2); Potassium 4.7 mmol/L (3.5-5.1); Total Bilirubin 1.4 mg/dL (0.2-1.3)
[2017-12-04 07:19] LABS: Appearance,Urine Cloudy (Clear); Bilirubin,Urine Negative (Negative); Blood,Urine Moderate (Negative); Color,Urine Yellow; Glucose,Urine (UA) Negative (Negative); Hyaline Casts,Urine 6 /lpf (0-2); Ketones,Urine Negative (Negative); Leukocyte Esterase,Urine Large (Negative); Nitrite,Urine Positive (Negative); PH, Urine 6.5 (5.0-8.0); Protein,Urine 1+ (Negative); RBC,Urine 22 /hpf (0-5); Specific Gravity,Urine 1.011 (1.001-1.035); Squamous Epithelial Cell,Urine 3 /hpf (0-4); Urobilinogen,Urine <2.0 mg/dL (<2.0); WBC,Urine >182 /hpf (0-5)
[2017-12-04] MEDS ORDERED: cefTRIAXone IN SWFI 1,000 MG/10 ML SYRINGE IVP STA (07:25)
[2017-12-04] MEDS ORDERED: SODIUM CHLORIDE 0.9% 500 ML IV ONE (07:25)
[2017-12-04] MEDS ORDERED: NALOXONE 0.4 MG/ML 1 ML VIAL IV PRN (07:27)
[2017-12-04] MEDS: SODIUM CHLORIDE 0.9% 1,000 ML IV SCH ×2 (07:47→21:05)
[2017-12-04] MEDS: ACETAMINOPHEN TAB 325 MG TAB PO PRN ×2 (10:40→21:06)
[2017-12-04] MEDS ORDERED: HYDROcodone/APAP 5-325MG 1 EACH TAB PO PRN (12:37)
--- NOTE | 2017-12-04 20:12 | HP ---
HISTORY AND PHYSICAL CHIEF COMPLAINTS: Fall and weakness. HISTORY OF PRESENT ILLNESS: This 77-year-old woman with a past medical history of multiple medical problems including atrial fibrillation, hypertension, hyperlipidemia, history of pneumonia, was recently admitted with UTI. The patient was given antibiotics and the patient improved significantly. Klebsiella was grown from the culture in 2016. There is no history of any fever, rigors or chills. No history of headache, loss of consciousness or seizures. Most recent cultures negative. At home, the patient apparently refused home care and the patient apparently was going to the bathroom in the middle of the night and the patient had fall and did have a head trauma according to the family and the patient taken to [facility] and admitted for further evaluation and treatment. In the ER, extensive radiology evaluation including CT scan of the brain and as well as pelvic x-rays showed no evidence of any fracture. Thyroid nodule was noted and the patient was admitted to the hospital for further evaluation and treatment. There is no history of fever, rigors or chills at this time. PAST MEDICAL HISTORY: Atrial fibrillation, history of hypertension, hyperlipidemia, pneumonia, uterine cancer. Mets to the lungs. MEDICATIONS: Home medications are: 1. Amlodipine. 2. Atorvastatin 5/10 p.o. q.h.s. 3. Senokot-S 1 tab p.o. b.i.d. 4. Xarelto 20 mg p.o. daily. 5. Megace 40 mg p.o. daily. 6. Atenolol 20 mg q.a.m. ALLERGIES: ARE CIPRO, MACROBID, BACTRIM, AUGMENTIN, LEVAQUIN. FAMILY HISTORY: History of CHF in the family. SOCIAL HISTORY: No history of smoking. No history of alcohol intake. REVIEW OF SYSTEMS: ENT: Diminished vision. Diminished hearing. Cardiovascular: No angina or palpitations. RESPIRATORY: No cough. GI: As mentioned earlier. : No dysuria. NERVOUS SYSTEM: No numbness. Generalized weakness. ALLERGY/IMMUNOLOGY: No asthma or hayfever. MUSCULOSKELETAL as mentioned earlier. HEMATOLOGY/ONCOLOGY: No history of anemia. Endocrine: No history of diabetes or hypothyroidism. CONSTITUTIONAL: As mentioned earlier. Dermatology: Negative. Rheumatology: Negative. Psychiatry: As mentioned earlier. PHYSICAL EXAM: GENERAL APPEARANCE: Alert and oriented times three. VITAL SIGNS: Pulse 93, blood pressure 130/68, respirations 16, temperature 98.8, pulse ox 96 percent on room air. HEENT is conjunctivae normal. Oral mucosa moist. Neck is no jugular venous distention. No carotid bruit. No lymph node enlargement. Cardiovascular: S1-S2 muffled. No S3, no S4. RESPIRATORY: Breath sounds diminished in the bases. Scattered rhonchi. No crackles. ABDOMEN: Soft, nontender. No mass palpable. Legs: No edema. No swelling. NERVOUS SYSTEM: Diffusely weak. LABS: WBC 15.1, hemoglobin 15.4. Sodium 141, potassium 4.0, creatinine is 1.17, glucose 117, total bilirubin is 1.4, calcium 11.3. UA noted. ASSESSMENT: 1. Fall and weakness possible rule out orthostatic hypotension or transient ischemic attack. 2. Urinary tract infection. 3. Increased creatinine with mild chronic kidney disease stage 3. 4. Hypercalcemia. 5. Increased WBC. 6. Hypertension. 7. Hyperlipidemia. 8. Atrial fibrillation. 9. History of pneumonia. 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 RECOMMENDATIONS AND DISCUSSION: In this 77-year-old woman who presented with multiple complex medical issues, we will monitor the patient closely. Continue the current medications, management and symptomatic treatment. Otherwise at this time I recommend broad-spectrum IV antibiotics. Infectious disease evaluation. I would also recommend PT/OT evaluation and evaluate the possibility of rehab also. The prognosis is guarded because of multiple complex medical issues. Further recommendations to follow. Check orthostatic vitals. MMODL / IJN: [id number] /
[2017-12-04] MEDS: amLODIPine 5 MG TAB PO SCH (21:05)
[2017-12-04] MEDS: ATORVASTATIN 10 MG TAB PO SCH (21:06)
[2017-12-04] MEDS: SENNOSIDES-DOCUSATE SODIUM 1 EACH TAB PO SCH (21:06)
--- NOTE | 2017-12-04 22:57 | CONS ---
CONSULTATION DATE OF SERVICE: 12/04/2017. REASON FOR CONSULTATION: Urinary tract infection. HISTORY OF PRESENT ILLNESS: The patient is a 77-year-old female who was recently admitted at this facility in October when the patient at that time was diagnosed with urinary tract infection. Urine culture negative. The patient was treated with IV Rocephin with overall improvement. Subsequently, she did finish a course of 1 week course of IV Rocephin through the midline. The patient seemed to have been doing well since then. Yesterday the patient was using the bathroom in the middle of the night. The patient fell forward. The patient did not lose any consciousness. The patient said she was feeling very weak and tired and has no energy to get up and around. EMG was called. The patient was brought in to the [facility] ER for further evaluation. The patient did have x-rays of the pelvis and head and cervical spine CT which did not show any evidence of acute intracranial hemorrhage or any fractures. The patient has been afebrile. She was noticed to have elevated white count 15.1 and a positive UA urine was cloudy with moderate leukocyte esterase, more than 1 WBC. Patient has been admitted to the hospital. She was started on Rocephin. Infectious Disease was consulted for further recommendation regarding antibiotic therapy in a patient who did have a history of recurrent UTI for many years, almost 20 per the daughter and the time she was on nitrofurantoin prophylaxis therapy however they were discontinued because of the lung side effects. The patient currently denies having any headache. Denies having any chest pain or shortness of breath or cough. No abdominal pain. The patient did have urinary incontinence and to wear a brace all the time. She states she changes it whenever she felt it fill. No significant burning or frequency. Denies any diarrhea. No high-grade fever. Though she feels cool all the time. No redness. No chills. No nausea, vomiting. REVIEW OF SYSTEMS: CONSTITUTIONAL: Positive for weakness. No high-grade fever. Eyes: No complaint. ENT no complaint. Respiratory no complaint. Cardiovascular no complaint. Genitourinary: as per HPI. GASTROINTESTINAL: No complaint. Musculoskeletal no complaint. Integumentary: No complaint. Psychological no complaint. Endocrine no complaint. Neurological no complaint. PAST MEDICAL HISTORY: Atrial fibrillation, history of colon cancer, hypertension, hyperlipidemia, pneumonia, migraine headaches, and recurrent UTI. PAST SURGICAL HISTORY: Hysterectomy, right leg dissection, bilateral cataract surgery, bronchoscopy. SOCIAL HISTORY: No history of smoking, drinking or drug use. FAMILY HISTORY: Father history of heart failure, mother with congestive heart failure with history of cancer and ND. ALLERGIES: INCLUDE CIPROFLOXACIN, NITROFURANTOIN, , AMOXICILLIN, GRAM-NEGATIVE LEVOFLOXACIN. MEDICATION: Currently the patient is on Tylenol, [place]: Ronni, Lipitor, Rocephin 1 g daily, Megace, Narcan, Xarelto, Senokot. EXAMINATION: Blood pressure is 133/60 with a pulse of 83, temperature 98.8. She is 96% on room air. General description is an elderly female lying in bed in no distress. No tachypnea or accessory muscle of respiration use. HEENT: Shows no pallor or scleral icterus. Oral mucosa is dry. No pharyngeal erythema or thrush. Neck trachea central. No thyromegaly. LUNGS: Unlabored breathing. Clear to auscultation anteriorly. No wheeze or crackles. Heart S1, S2. Regular rate and rhythm. ABDOMEN: Soft, no tenderness. No guarding or rigidity. EXTREMITIES: No edema of the feet. Skin examination: No rash or mass palpable. Neurological patient is awake, alert, oriented times three. Mood and affect normal. LABS: Hemoglobin is 15.4, white count 15.1 with a BUN of 15, creatinine is 1.17. Electrolytes have been normal. Urine was positive, cloudy with moderate leukocyte esterase with more than 1 to 2 WBC. Cultures currently pending. DIAGNOSTIC IMPRESSION AND PLAN: 1. Patient admitted to the hospital with generalized weakness and did have a fall. The patient did have history of recurrent urinary tract infection now does have significantly positive UA. The patient likely urinary tract infection from enteric gram-negative pathogen. The patient has been on antibiotic history. concern for possible resistant pathogen not entirely excluded. 2. The patient who did have multiple antibiotic allergies that does limit the number of antibiotic that can be safely used. PLAN: 1. Rocephin 1 g IV piggyback daily. 2. IV fluid. 3. Care was discussed in detail with the family on[QAMARKER prevent any current UTIs thank you for this consultation. Will follow this patient with you. MMODL / IJN: [id number] /
[2017-12-05] MEDS: cefTRIAXone IN SWFI 1,000 MG/10 ML SYRINGE IVP SCH (07:46)
[2017-12-05] MEDS: ATENOLOL 25 MG TAB PO SCH (07:46)
[2017-12-05] MEDS: SENNOSIDES-DOCUSATE SODIUM 1 EACH TAB PO SCH ×2 (07:46→20:08)
[2017-12-05] MEDS: SODIUM CHLORIDE 0.9% 1,000 ML IV SCH (07:47)
[2017-12-05] MEDS: MEGESTROL 40 MG TAB PO SCH (07:47)
[2017-12-05 08:19] LABS: Basophils % (A) 0 %; Eosinophils # (A) 0.2 k/uL (0-0.7); Eosinophils % (A) 3 %; HCT 40.7 % (34.0-46.0); Lymphocytes # (A) 1.3 k/uL (1.0-4.8); Lymphocytes % (A) 18 %; MCH 28.6 pg (25.0-35.0); MCHC 31.8 g/dL (31.0-37.0); MCV 89.7 fL (80.0-100.0); Mean Platelet Volume 6.7; Monocytes # (A) 0.4 k/uL (0-1.0); Monocytes % (A) 6 %; Neutrophils # (A) 5.2 k/uL (1.3-7.7); Neutrophils % (A) 73 %; Platelet Count 135 k/uL (150-450); RBC 4.54 m/uL (3.80-5.40); RDW 14.3 % (11.5-15.5); WBC 7.2 k/uL (3.8-10.6)
[2017-12-05 08:40] LABS: Calcium 9.8 mg/dL (8.4-10.2); Potassium 4.7 mmol/L (3.5-5.1); Total Bilirubin 1.4 mg/dL (0.2-1.3); Total Protein 5.7 g/dL (6.3-8.2)
[2017-12-05] MEDS ORDERED: RIVAROXABAN 20 MG TAB PO SCH (09:00)
[2017-12-05] MEDS: ACETAMINOPHEN TAB 325 MG TAB PO PRN ×2 (10:22→20:08)
[2017-12-05] MEDS ORDERED: RIVAROXABAN 15 MG TAB PO SCH (10:47)
[2017-12-05] MEDS ORDERED: IPRATROPIUM-ALBUTEROL 3 ML NEB INHALATION PRN (12:57)
--- NOTE | 2017-12-05 15:57 | P.PN ---
Subjective Progress Note Date: 12/05/17 Progress note being dictated for Dr. Melara Interval history: This a 77-year-old female admitted with fall, weakness, acute recurrent UTI, acute renal failure and multiple other medical issues. Negative for orthostatic hypotension. Maintained on IV antibiotics as per infectious disease. Continues on gentle IV fluid hydration with renal function improving. Good diet intake with no nausea vomiting or diarrhea. Evaluated by PT/OT and subacute rehab recommended at discharge. Denies chest pain, palpitations or shortness of breath. T-max 99.2. Objective - Vital Signs Vital signs: Vital Signs Temp 97.1 F L 12/05/17 06:45 Pulse 91 12/05/17 06:45 Resp 16 12/05/17 06:45 BP 129/79 12/05/17 08:49 Pulse Ox 97 12/05/17 06:45 Intake & Output 12/04/17 12/05/17 12/05/17 18:59 06:59 18:59 Other: Voiding Method Bedpan Bedpan Diaper Diaper Diaper # Voids 1 4 - Exam PHYSICAL EXAM: VITAL SIGNS: As above GENERAL: Sitting up in chair, visiting with significant other, no acute distress HEENT: Conjunctivae normal. eyes normal. Oral mucosa more NECK: No JVD. No thyroid enlargement. No LNs CARDIOVASCULAR: S1, S2 muffled. No murmur. RESPIRATION: Breath sounds diminished in the bases. Scattered rhonchi , no crackles. ABDOMEN: Soft, nontender . No guarding. no masses palpable.Bowel sounds heard. Groin pink, mildly excoriated. LEGS: No edema. no swelling PSYCHIATRY: Alert and oriented -3, mood and affect normal. NERVOUS SYSTEM: Cranial N 2-12 grossly normal. Moves all 4 limbs. Diffuse weakness No focal deficits. Skin: no ulcer no rash Joints: No active swelling. No inflammation. Lymphatic system. No LN neck axilla or groin. - Labs CBC & Chem 7: 12/05/17 07:14 12/05/17 07:14 Labs: Abnormal Lab Results - Last 24 Hours (Table) 12/05/17 12/05/17 Range/Units 07:14 07:14 Plt Count 135 L (150-450) k/uL Chloride 112 H (98-107) mmol/L Total Bilirubin 1.4 H (0.2-1.3) mg/dL Total Protein 5.7 L (6.3-8.2) g/dL Albumin 3.0 L (3.5-5.0) g/dL Microbiology - Last 24 Hours (Table) 12/04/17 06:40 Blood Culture - Preliminary Blood No Growth after 24 hours 12/04/17 07:00 Urine Culture - Final Urine,Catheterized Assessment and Plan Assessment: 1. Fall and weakness, negative for orthostatic hypotension, possible TIA 2. Acute UTI 3. Acute on chronic renal failure, stage III 4. Hypercalcemia 5. Hypertension 6. 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 Chronic atrial fibrillation Plan: Continue on current medication regime ,monitoring and symptomatic treatment. Gentle IV fluid hydration. Close monitoring of electrolytes and renal function with repeat labs ordered for a.m. Maintain IV antibiotics as per infectious disease. Discharge planning in progress for tomorrow to subacute rehab. The impression and plan of care has been dictated as directed. : I performed a history and examination of this patient, discussed the same with the dictator. I agree with the dictator's note ,documented as a scribe. Any additional findings or plans will be noted.
[2017-12-05] MEDS: IPRATROPIUM-ALBUTEROL 3 ML NEB INHALATION SCH ×2 (16:12→19:58)
[2017-12-05] MEDS: ATORVASTATIN 10 MG TAB PO SCH (20:08)
[2017-12-05] MEDS: amLODIPine 5 MG TAB PO SCH (20:08)
--- NOTE | 2017-12-05 20:16 | P.PN ---
Subjective Progress Note Date: 12/05/17 77-year-old female presents from her home environment not feeling well with profound increased weakness, increasing difficulties trying to get out of bed and worsening of her underlying urinary discomforts. The patient's daughter is present and helps with the history. The patient has been having a decline of her status over the last several months. She does live in the family home with her who is able to care for her. He has had significant health challenges but is now doing well, and there is the daughter who was also able to help. The patient has many ALLERGIES which is making it somewhat difficult to treat her frequent urinary tract infections. In the past was doing relatively well on Macrobid but with underlying lung disease is no longer able to take this. Since that has had more frequent urinary infections. At this time she relates that she was having increasing frequency, was having difficulties with discomfort in the suprapubic area. She is completely incontinent and is unaware of when she urinates except it is quite predictable that when she arises from a sitting position she gets a gush of urine. She wears briefs as well as a pad because the rapidity of the urine overwhelms the brief and she saturates chairs and clothing and constantly has added a pad to the brief. the patient's daughter and are present relate that she was doing relatively well but suddenly became weak and ill at 4:00 in the morning and fell off the toilet.she was brought to Hospital is been admitted for another bout of sepsis from urinary tract. With this the infectious diseases consultation was requested. We again relates to the family that she has significant bladder dysfunction on the basis of her pelvic pathology in the past of uterine cancer and the resection of a large ovarian mass. at this time the patient isFeeling poorly having difficulty with eating because when she sits up too far she feels dizzy. She does not have an appetite but denies nausea or emesis. Objective - Vital Signs Vital signs: Vital Signs Temp 98.3 F 12/05/17 15:00 Pulse 78 12/05/17 20:08 Resp 16 12/05/17 15:00 BP 122/68 12/05/17 15:00 Pulse Ox 95 12/05/17 15:00 Intake & Output 12/05/17 12/05/17 12/06/17 06:59 18:59 06:59 Other: Voiding Method Bedpan Diaper Diaper # Voids 4 2 # Bowel Movements 1 - Exam Pleasant 77-year-old woman who is a modest historian per daughter is helpful and filling in details HEENT: Anicteric conjunctiva are pink and moist nasal mucosa grossly intact without significant lesions, there is no thrush. Upper and lower dentures Neck: The neck is supple without significant lymphadenopathy or thyromegaly. Lungs: Good bilateral air entry without significant crackles or wheezing. There is no significant bronchial sounds. There is no egophony or dullness. Heart: Regular rate and rhythm with an audible S1-S2, no S3 no S4. There is no significant murmur click or rub, PMI was nondisplaced. Abdomen: Doughy in consistency, Positive bowel sounds soft and nontender without palpable masses or organomegaly. There was no guarding or rebound. There is no flank tenderness but there is distinct suprapubic tenderness on exam Extremities: The upper extremities have excellent pulses they are symmetric, no significant petechiae or telangiectasia. No splinter hemorrhages were noted. The lower extremities have symmetric bilateral lower extremity edema which apparently is quite common in persistent, no ulcerations are seen. The peripheral pulses were 2+ and symmetric. Neuro: Awake alert oriented to person place and time. Does have some minimal difficulties with memory. The daughter is very helpful and filling out this specific details, but does not have acute gross focal sensory motor deficits. - Labs CBC & Chem 7: 12/05/17 07:14 12/05/17 07:14 Labs: Abnormal Lab Results - Last 24 Hours (Table) 12/05/17 12/05/17 Range/Units 07:14 07:14 Plt Count 135 L (150-450) k/uL Chloride 112 H (98-107) mmol/L Total Bilirubin 1.4 H (0.2-1.3) mg/dL Total Protein 5.7 L (6.3-8.2) g/dL Albumin 3.0 L (3.5-5.0) g/dL Microbiology - Last 24 Hours (Table) 12/04/17 06:40 Blood Culture - Preliminary Blood No Growth after 24 hours 12/04/17 07:00 Urine Culture - Final Urine,Catheterized Laboratory Results WBC 7.2 k/uL (3.8-10.6) 12/05/17 07:14 RBC 4.54 m/uL (3.80-5.40) 12/05/17 07:14 Hgb 13.0 gm/dL (11.4-16.0) 12/05/17 07:14 Hct 40.7 % (34.0-46.0) 12/05/17 07:14 MCV 89.7 fL (80.0-100.0) 12/05/17 07:14 MCH 28.6 pg (25.0-35.0) 12/05/17 07:14 MCHC 31.8 g/dL (31.0-37.0) 12/05/17 07:14 RDW 14.3 % (11.5-15.5) 12/05/17 07:14 Plt Count 135 k/uL (150-450) L 12/05/17 07:14 Neutrophils % 73 % 12/05/17 07:14 Lymphocytes % 18 % 12/05/17 07:14 Monocytes % 6 % 12/05/17 07:14 Eosinophils % 3 % 12/05/17 07:14 Basophils % 0 % 12/05/17 07:14 Neutrophils # 5.2 k/uL (1.3-7.7) 12/05/17 07:14 Lymphocytes # 1.3 k/uL (1.0-4.8) 12/05/17 07:14 Monocytes # 0.4 k/uL (0-1.0) 12/05/17 07:14 Eosinophils # 0.2 k/uL (0-0.7) 12/05/17 07:14 Basophils # 0.0 k/uL (0-0.2) 12/05/17 07:14 Sodium 140 mmol/L (137-145) 12/05/17 07:14 Potassium 4.7 mmol/L (3.5-5.1) 12/05/17 07:14 Chloride 112 mmol/L (98-107) H 12/05/17 07:14 Carbon Dioxide 22 mmol/L (22-30) 12/05/17 07:14 Anion Gap 6 mmol/L 12/05/17 07:14 BUN 12 mg/dL (7-17) 12/05/17 07:14 Creatinine 1.00 mg/dL (0.52-1.04) 12/05/17 07:14 Est GFR (CKD-EPI)AfAm 62 (>60 ml/min/1.73 sqM) 12/05/17 07:14 Est GFR (CKD-EPI)NonAf 54 (>60 ml/min/1.73 sqM) 12/05/17 07:14 Glucose 95 mg/dL (74-99) 12/05/17 07:14 POC Glucose (mg/dL) 117 mg/dL (75-99) H 12/04/17 06:41 POC Glu Manager Urgent Care ID Carmina Cano 12/04/17 06:41 Calcium 9.8 mg/dL (8.4-10.2) 12/05/17 07:14 Total Bilirubin 1.4 mg/dL (0.2-1.3) H 12/05/17 07:14 AST 24 U/L (14-36) 12/05/17 07:14 ALT 25 U/L (9-52) 12/05/17 07:14 Alkaline Phosphatase 71 U/L (38-126) 12/05/17 07:14 Total Protein 5.7 g/dL (6.3-8.2) L 12/05/17 07:14 Albumin 3.0 g/dL (3.5-5.0) L 12/05/17 07:14 Urine Color Yellow 12/04/17 07:00 Urine Appearance Cloudy (Clear) H 12/04/17 07:00 Urine pH 6.5 (5.0-8.0) 12/04/17 07:00 Ur Specific [place] 1.011 (1.001-1.035) 12/04/17 07:00 Urine Protein 1+ (Negative) H 12/04/17 07:00 Urine Glucose (UA) Negative (Negative) 12/04/17 07:00 Urine Ketones Negative (Negative) 12/04/17 07:00 Urine Blood Moderate (Negative) H 12/04/17 07:00 Urine Nitrite Positive (Negative) H 12/04/17 07:00 Urine Bilirubin Negative (Negative) 12/04/17 07:00 Urine Urobilinogen <2.0 mg/dL (<2.0) 12/04/17 07:00 Ur Leukocyte Esterase Large (Negative) H 12/04/17 07:00 Urine RBC 22 /hpf (0-5) H 12/04/17 07:00 Urine WBC >182 /hpf (0-5) H 12/04/17 07:00 Urine WBC Clumps Many /hpf (None) H 12/04/17 07:00 Ur Squamous Epith Cells 3 /hpf (0-4) 12/04/17 07:00 Hyaline Casts 6 /lpf (0-2) H 12/04/17 07:00 Microbiology 12/04/17 06:40 Blood Blood Culture - Preliminary No Growth after 24 hours 12/04/17 07:00 Urine,Catheterized Urine Culture - Final Assessment and Plan (1) History of uterine cancer Current Visit: No Status: Acute Code(s): Z85.42 - PERSONAL HISTORY OF MALIGNANT NEOPLASM OF OTH PRT UTERUS SNOMED Code(s): 741016199 (2) Urinary tract infection Narrative/Plan: 77-year-old female who has a complex past medical history regardingher history of uterine cancer as well as a large ovary aren't massive required surgical resection. She has resolved and difficulty with bladder dysfunction and recurrent urinary tract infection. The etiology and pathology is again described to the daughter and hopes to have a good understanding of her recurrent infections. She was last seen in the office she was doing somewhat better and her goal was to have her infection free index utilize Cystex as well as urinary acidification if possible to try to prevent further urinary infections. She rapidly became ill after completion of her antibiotic therapy. As noted she did well and Rocephin we'll plan on completing at least a 7 day course at the [facility] care facility the time of transfer. She will receive some therapy to try to increase her strength. As noted she is not a candidate for chronic antibiotic therapy with agents such as Macrobid because of her pulmonary disease cultures may help derive an alternative course of therapy, aware of her many ALLERGIES. Current Visit: No Status: Acute Code(s): N39.0 - URINARY TRACT INFECTION, SITE NOT SPECIFIED SNOMED Code(s): 53871445
[2017-12-06] MEDS: SODIUM CHLORIDE 0.9% 1,000 ML IV SCH ×2 (01:49→14:10)
[2017-12-06] MEDS: IPRATROPIUM-ALBUTEROL 3 ML NEB INHALATION SCH ×4 (07:21→19:07)
[2017-12-06] MEDS: cefTRIAXone IN SWFI 1,000 MG/10 ML SYRINGE IVP SCH (07:51)
[2017-12-06] MEDS: ACETAMINOPHEN TAB 325 MG TAB PO PRN ×2 (07:51→17:16)
[2017-12-06] MEDS: RIVAROXABAN 15 MG TAB PO SCH (07:52)
[2017-12-06] MEDS: SENNOSIDES-DOCUSATE SODIUM 1 EACH TAB PO SCH ×2 (07:52→21:58)
[2017-12-06] MEDS: ATENOLOL 25 MG TAB PO SCH (07:52)
[2017-12-06] MEDS: MEGESTROL 40 MG TAB PO SCH (07:52)
[2017-12-06 08:46] LABS: Basophils % (A) 0 %; Eosinophils # (A) 0.1 k/uL (0-0.7); Eosinophils % (A) 2 %; HCT 40.9 % (34.0-46.0); HGB 12.5 gm/dL (11.4-16.0); Hypochromasia Slight; Lymphocytes # (A) 1.8 k/uL (1.0-4.8); Lymphocytes % (A) 25 %; MCH 28.4 pg (25.0-35.0); MCHC 30.7 g/dL (31.0-37.0); MCV 92.4 fL (80.0-100.0); Mean Platelet Volume 7.1; Monocytes # (A) 0.4 k/uL (0-1.0); Monocytes % (A) 6 %; Neutrophils # (A) 4.8 k/uL (1.3-7.7); Neutrophils % (A) 67 %; Platelet Count 126 k/uL (150-450); RBC 4.42 m/uL (3.80-5.40); RDW 14.3 % (11.5-15.5); WBC 7.2 k/uL (3.8-10.6)
[2017-12-06 09:16] LABS: Albumin 3.1 g/dL (3.5-5.0); Calcium 9.9 mg/dL (8.4-10.2); Potassium 4.6 mmol/L (3.5-5.1); Total Bilirubin 1.5 mg/dL (0.2-1.3); Total Protein 5.8 g/dL (6.3-8.2)
--- NOTE | 2017-12-06 15:33 | P.DS ---
Providers Date of admission: 12/05/17 11:33 Expected date of discharge: 12/06/17 Attending physician: Mayte Melara Consults: 12/04/17 12:35 Consult Physician Routine Consulting Provider: Daniel Roman Consult Reason/Comments: UTI, known Do you want consulting provider notified?: Yes, Notify in am Primary care physician: [facility] Course: Final Diagnoses: 1. Fall and weakness, negative for orthostatic hypotension, possible TIA 2. Acute UTI 3. Acute on chronic renal failure, stage III 4. Hypercalcemia 5. Hypertension 6. 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 Chronic atrial fibrillation Hospital course:This a 77-year-old female admitted with fall, weakness, acute recurrent UTI, acute renal failure and multiple other medical issues. Negative for orthostatic hypotension. Evaluated by infectious disease. Maintained on IV antibiotics and gentle IV fluid hydration. Significant clinical improvement. Cleared by consults for discharge. Patient will be discharged to subacute rehab in a stable condition with guarded prognosis. Exam GENERAL: Alert and oriented 3, no acute distress CARDIOVASCULAR: S1, S2 muffled. No murmur. RESPIRATION: Breath sounds diminished in the bases. Scattered rhonchi , no crackles. ABDOMEN: Soft, nontender . No guarding. no masses palpable.Bowel sounds heard. NERVOUS SYSTEM: No focal deficits The impression and plan of care has been dictated as directed. : I performed a history and examination of this patient, discussed the same with the dictator. I agree with the dictator's note ,documented as a scribe. Any additional findings or plans will be noted. Time taken: 35 minutes Patient Condition at Discharge: Stable Plan - Discharge Summary Discharge Rx Participant: Yes New Discharge Prescriptions: New Acetaminophen Tab [Tylenol] 650 mg PO Q6HR PRN tab PRN Reason: Mild Pain Or Fever > 100.5 Ipratropium-Albuterol Nebulize [Duoneb 0.5 mg-3 mg/3 ml Soln] 3 ml INHALATION RT-QID ampul.neb Ipratropium-Albuterol Nebulize [Duoneb 0.5 mg-3 mg/3 ml Soln] 3 ml INHALATION Q4H PRN ampul.neb PRN Reason: Shortness Of Breath Or Wheezing Rivaroxaban [Xarelto] 15 mg PO DAILY tab Continue amLODIPine/ATORVASTATIN [amLODIPine/ATORVASTATIN 5-10 mg] 1 tab PO HS Atenolol 25 mg PO QAM Megestrol [Megace] 40 mg PO DAILY Sennosides-Docusate Sodium [Senokot-S] 1 tab PO BID Discontinued Rivaroxaban [Xarelto] 20 mg PO DAILY Discharge Medication List Atenolol 25 mg PO QAM 03/09/16 [History] amLODIPine/ATORVASTATIN [amLODIPine/ATORVASTATIN 5-10 mg] 1 tab PO HS 03/09/16 [ History] Megestrol [Megace] 40 mg PO DAILY 11/08/17 [History] Sennosides-Docusate Sodium [Senokot-S] 1 tab PO BID 12/04/17 [History] Acetaminophen Tab [Tylenol] 650 mg PO Q6HR PRN tab 12/06/17 [Rx] Ipratropium-Albuterol Nebulize [Duoneb 0.5 mg-3 mg/3 ml Soln] 3 ml INHALATION Q4H PRN ampul.neb 12/06/17 [Rx] Ipratropium-Albuterol Nebulize [Duoneb 0.5 mg-3 mg/3 ml Soln] 3 ml INHALATION RT -QID ampul.neb 12/06/17 [Rx] Rivaroxaban [Xarelto] 15 mg PO DAILY tab 12/06/17 [Rx] Follow up Appointment(s)/Referral(s): Jayme Hood DO [STAFF PHYSICIAN] - 3 Days (while at Rehab) [facility] [Primary Care Provider] - 3 Days (After discharge from subacute rehab) Patient Instructions/Handouts: Fall Prevention for Older Adults (ED), Urinary Traction Infection in Older Adults (DC) Activity/Diet/Wound Care/Special Instructions: Antibiotics as per infectious disease CBC, BMP in 3 days
--- NOTE | 2017-12-06 17:50 | P.PN ---
Subjective Progress Note Date: 12/06/17 Progress note being dictated for Dr. Melara Interval history: This a 77-year-old female admitted with fall, weakness, acute recurrent UTI, acute renal failure and multiple other medical issues. Negative for orthostatic hypotension. Maintained on IV antibiotics as per infectious disease. Continues on gentle IV fluid hydration with renal function improving. Good diet intake with no nausea vomiting or diarrhea. Evaluated by PT/OT and subacute rehab recommended at discharge. Denies chest pain, palpitations or shortness of breath. T-max 99.2. 12/06/2017 significant clinical improvement. Continues on IV antibiotics. Afebrile, normal WBC. Renal function improved, T bili 1.5. Denies chest pain, palpitations or increased shortness of breath. Objective - Vital Signs Vital signs: Vital Signs Temp 98.3 F 12/06/17 15:00 Pulse 82 12/06/17 15:39 Resp 16 12/06/17 15:39 BP 120/76 12/06/17 15:00 Pulse Ox 93 L 12/06/17 15:30 Intake & Output 12/05/17 12/06/17 12/06/17 18:59 06:59 18:59 Intake Total 550 800 Balance 550 800 Intake: Oral 550 800 Other: Voiding Method Diaper Diaper Diaper # Voids 2 2 3 # Bowel Movements 1 1 0 - Exam PHYSICAL EXAM: VITAL SIGNS: As above GENERAL: Sitting up in bed, no acute distress, HEENT: Conjunctivae normal. eyes normal. Oral mucosa moist NECK: No JVD. No thyroid enlargement. No LNs CARDIOVASCULAR: S1, S2 muffled. No murmur. RESPIRATION: Breath sounds diminished in the bases. Occasional Scattered rhonchi. ABDOMEN: Soft, nontender . No guarding. no masses palpable.Bowel sounds heard. LEGS: No edema. no swelling PSYCHIATRY: Alert and oriented -3, mood and affect normal. NERVOUS SYSTEM: Cranial N 2-12 grossly normal. Moves all 4 limbs. Diffuse weakness No focal deficits. Skin: no ulcer no rash Lymphatic system. No LN neck axilla or groin. Microbiology 12/04/17 06:40 Blood Blood Culture - Preliminary No Growth after 48 hours 12/04/17 07:00 Urine,Catheterized Urine Culture - Final - Labs CBC & Chem 7: 12/06/17 07:53 12/06/17 07:53 Labs: Abnormal Lab Results - Last 24 Hours (Table) 12/06/17 12/06/17 Range/Units 07:53 07:53 MCHC 30.7 L (31.0-37.0) g/dL Plt Count 126 L (150-450) k/uL Chloride 112 H (98-107) mmol/L Total Bilirubin 1.5 H (0.2-1.3) mg/dL Total Protein 5.8 L (6.3-8.2) g/dL Albumin 3.1 L (3.5-5.0) g/dL Microbiology - Last 24 Hours (Table) 12/04/17 06:40 Blood Culture - Preliminary Blood No Growth after 48 hours 12/04/17 07:00 Urine Culture - Final Urine,Catheterized Assessment and Plan Assessment: 1. Fall and weakness, negative for orthostatic hypotension, possible TIA 2. Acute UTI 3. Acute on chronic renal failure, stage III 4. Hypercalcemia 5. Hypertension 6. 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 Chronic atrial fibrillation Plan: Continue on current medication regime ,monitoring and symptomatic treatment. Discharge planning in progress for subacute rehab pending placement of midline catheter .Close monitoring of electrolytes and renal function with repeat labs ordered for a.m. Maintain IV antibiotics as per infectious disease. The impression and plan of care has been dictated as directed. : I performed a history and examination of this patient, discussed the same with the dictator. I agree with the dictator's note ,documented as a scribe. Any additional findings or plans will be noted.
[2017-12-06] MEDS: ATORVASTATIN 10 MG TAB PO SCH (21:59)
[2017-12-06] MEDS: amLODIPine 5 MG TAB PO SCH (21:59)
[2017-12-07 00:19] VITALS: RESP 20
--- NOTE | 2017-12-07 01:10 | P.PN ---
Subjective Progress Note Date: 12/06/17 77-year-old female presents from her home environment not feeling well with profound increased weakness, increasing difficulties trying to get out of bed and worsening of her underlying urinary discomforts. The patient's daughter is present and helps with the history. The patient has been having a decline of her status over the last several months. She does live in the family home with her who is able to care for her. He has had significant health challenges but is now doing well, and there is the daughter who was also able to help. The patient has many ALLERGIES which is making it somewhat difficult to treat her frequent urinary tract infections. In the past was doing relatively well on Macrobid but with underlying lung disease is no longer able to take this. Since that has had more frequent urinary infections. At this time she relates that she was having increasing frequency, was having difficulties with discomfort in the suprapubic area. She is completely incontinent and is unaware of when she urinates except it is quite predictable that when she arises from a sitting position she gets a gush of urine. She wears briefs as well as a pad because the rapidity of the urine overwhelms the brief and she saturates chairs and clothing and constantly has added a pad to the brief. the patient's daughter and are present relate that she was doing relatively well but suddenly became weak and ill at 4:00 in the morning and fell off the toilet.she was brought to Hospital is been admitted for another bout of sepsis from urinary tract. With this the infectious diseases consultation was requested. We again relates to the family that she has significant bladder dysfunction on the basis of her pelvic pathology in the past of uterine cancer and the resection of a large ovarian mass. at this time the patient isFeeling poorly having difficulty with eating because when she sits up too far she feels dizzy. She does not have an appetite but denies nausea or emesis. 12/06/2017 patient is feeling better today. Sitting upright eating her lunch. Family is pleased that there is some improvement. She was profoundly weak pulmonary rehab to complete her course of therapy. Objective - Vital Signs Vital signs: Vital Signs Temp 99.7 F H 12/06/17 23:00 Pulse 87 12/06/17 23:00 Resp 20 12/06/17 23:00 BP 146/76 08/21/18 23:00 Pulse Ox 93 L 12/06/17 23:00 Intake & Output 12/06/17 12/06/17 12/07/17 06:59 18:59 06:59 Intake Total 550 800 250 Balance 550 800 250 Intake: Oral 550 800 250 Other: Voiding Method Diaper Diaper # Voids 2 3 1 # Bowel Movements 1 0 - Exam Pleasant 77-year-old woman who is a modest historian per daughter is helpful and filling in details HEENT: Anicteric conjunctiva are pink and moist nasal mucosa grossly intact without significant lesions, there is no thrush. Upper and lower dentures Neck: The neck is supple without significant lymphadenopathy or thyromegaly. Lungs: Good bilateral air entry without significant crackles or wheezing. There is no significant bronchial sounds. There is no egophony or dullness. Heart: Regular rate and rhythm with an audible S1-S2, no S3 no S4. There is no significant murmur click or rub, PMI was nondisplaced. Abdomen: Doughy in consistency, Positive bowel sounds soft and nontender without palpable masses or organomegaly. There was no guarding or rebound. There is no flank tenderness but there is distinct suprapubic tenderness on exam Extremities: The upper extremities have excellent pulses they are symmetric, no significant petechiae or telangiectasia. No splinter hemorrhages were noted. The lower extremities have symmetric bilateral lower extremity edema which apparently is quite common in persistent, no ulcerations are seen. The peripheral pulses were 2+ and symmetric. Neuro: Awake alert oriented to person place and time. Does have some minimal difficulties with memory. The daughter is very helpful and filling out this specific details, but does not have acute gross focal sensory motor deficits. - Labs CBC & Chem 7: 12/06/17 07:53 12/06/17 07:53 Labs: Abnormal Lab Results - Last 24 Hours (Table) 12/06/17 12/06/17 Range/Units 07:53 07:53 MCHC 30.7 L (31.0-37.0) g/dL Plt Count 126 L (150-450) k/uL Chloride 112 H (98-107) mmol/L Total Bilirubin 1.5 H (0.2-1.3) mg/dL Total Protein 5.8 L (6.3-8.2) g/dL Albumin 3.1 L (3.5-5.0) g/dL Microbiology - Last 24 Hours (Table) 12/04/17 06:40 Blood Culture - Preliminary Blood No Growth after 48 hours Laboratory Results WBC 7.2 k/uL (3.8-10.6) 12/06/17 07:53 RBC 4.42 m/uL (3.80-5.40) 12/06/17 07:53 Hgb 12.5 gm/dL (11.4-16.0) 12/06/17 07:53 Hct 40.9 % (34.0-46.0) 12/06/17 07:53 MCV 92.4 fL (80.0-100.0) 12/06/17 07:53 MCH 28.4 pg (25.0-35.0) 12/06/17 07:53 MCHC 30.7 g/dL (31.0-37.0) L 12/06/17 07:53 RDW 14.3 % (11.5-15.5) 12/06/17 07:53 Plt Count 126 k/uL (150-450) L 12/06/17 07:53 Neutrophils % 67 % 12/06/17 07:53 Lymphocytes % 25 % 12/06/17 07:53 Monocytes % 6 % 12/06/17 07:53 Eosinophils % 2 % 12/06/17 07:53 Basophils % 0 % 12/06/17 07:53 Neutrophils # 4.8 k/uL (1.3-7.7) 12/06/17 07:53 Lymphocytes # 1.8 k/uL (1.0-4.8) 12/06/17 07:53 Monocytes # 0.4 k/uL (0-1.0) 12/06/17 07:53 Eosinophils # 0.1 k/uL (0-0.7) 12/06/17 07:53 Basophils # 0.0 k/uL (0-0.2) 12/06/17 07:53 Hypochromasia Slight 12/06/17 07:53 Sodium 140 mmol/L (137-145) 12/06/17 07:53 Potassium 4.6 mmol/L (3.5-5.1) 12/06/17 07:53 Chloride 112 mmol/L (98-107) H 12/06/17 07:53 Carbon Dioxide 22 mmol/L (22-30) 12/06/17 07:53 Anion Gap 6 mmol/L 12/06/17 07:53 BUN 9 mg/dL (7-17) 12/06/17 07:53 Creatinine 0.93 mg/dL (0.52-1.04) 12/06/17 07:53 Est GFR (CKD-EPI)AfAm 68 (>60 ml/min/1.73 sqM) 12/06/17 07:53 Est GFR (CKD-EPI)NonAf 59 (>60 ml/min/1.73 sqM) 12/06/17 07:53 Glucose 93 mg/dL (74-99) 12/06/17 07:53 POC Glucose (mg/dL) 117 mg/dL (75-99) H 12/04/17 06:41 POC Glu Alley Tender CINDY Carmina Cano 12/04/17 06:41 Calcium 9.9 mg/dL (8.4-10.2) 12/06/17 07:53 Total Bilirubin 1.5 mg/dL (0.2-1.3) H 12/06/17 07:53 AST 19 U/L (14-36) 12/06/17 07:53 ALT 23 U/L (9-52) 12/06/17 07:53 Alkaline Phosphatase 70 U/L (38-126) 12/06/17 07:53 Total Protein 5.8 g/dL (6.3-8.2) L 12/06/17 07:53 Albumin 3.1 g/dL (3.5-5.0) L 12/06/17 07:53 Urine Color Yellow 12/04/17 07:00 Urine Appearance Cloudy (Clear) H 12/04/17 07:00 Urine pH 6.5 (5.0-8.0) 12/04/17 07:00 Ur Specific [place] 1.011 (1.001-1.035) 12/04/17 07:00 Urine Protein 1+ (Negative) H 12/04/17 07:00 Urine Glucose (UA) Negative (Negative) 12/04/17 07:00 Urine Ketones Negative (Negative) 12/04/17 07:00 Urine Blood Moderate (Negative) H 12/04/17 07:00 Urine Nitrite Positive (Negative) H 12/04/17 07:00 Urine Bilirubin Negative (Negative) 12/04/17 07:00 Urine Urobilinogen <2.0 mg/dL (<2.0) 12/04/17 07:00 Ur Leukocyte Esterase Large (Negative) H 12/04/17 07:00 Urine RBC 22 /hpf (0-5) H 12/04/17 07:00 Urine WBC >182 /hpf (0-5) H 12/04/17 07:00 Urine WBC Clumps Many /hpf (None) H 12/04/17 07:00 Ur Squamous Epith Cells 3 /hpf (0-4) 12/04/17 07:00 Hyaline Casts 6 /lpf (0-2) H 12/04/17 07:00 Microbiology 12/04/17 06:40 Blood Blood Culture - Preliminary No Growth after 48 hours 12/04/17 07:00 Urine,Catheterized Urine Culture - Final Assessment and Plan (1) History of uterine cancer Current Visit: No Status: Acute Code(s): Z85.42 - PERSONAL HISTORY OF MALIGNANT NEOPLASM OF OTH PRT UTERUS SNOMED Code(s): 605719016 (2) Urinary tract infection Narrative/Plan: 77-year-old female who has a complex past medical history regardingher history of uterine cancer as well as a large ovary aren't massive required surgical resection. She has resolved and difficulty with bladder dysfunction and recurrent urinary tract infection. The etiology and pathology is again described to the daughter and hopes to have a good understanding of her recurrent infections. She was last seen in the office she was doing somewhat better and her goal was to have her infection free index utilize Cystex as well as urinary acidification if possible to try to prevent further urinary infections. She rapidly became ill after completion of her antibiotic therapy. As noted she did well and Rocephin we'll plan on completing at least a 7 day course at the extended care facility the time of transfer. She will receive some therapy to try to increase her strength. As noted she is not a candidate for chronic antibiotic therapy with agents such as Macrobid because of her pulmonary disease cultures may help derive an alternative course of therapy, aware of her many ALLERGIES. 12/06/2017 although cultures are negative patient has a markedly abnormal urinalysis and she had evidence of sepsis at admission is noted by her fever at home, leukocytosis and evidence of symptoms of urinary infection. We'll plan 7 days of ceftriaxone at the extended care facility where she will receive her rehab try to improve her strength so she can get back to her home environment. Current Visit: No Status: Acute Code(s): N39.0 - URINARY TRACT INFECTION, SITE NOT SPECIFIED SNOMED Code(s): 68483244
[2017-12-07] MEDS: SODIUM CHLORIDE 0.9% 1,000 ML IV SCH ×2 (03:18→14:18)
[2017-12-07 06:33] VITALS: BP 157/71
[2017-12-07] MEDS: IPRATROPIUM-ALBUTEROL 3 ML NEB INHALATION SCH ×2 (07:23→11:05)
[2017-12-07] MEDS: ACETAMINOPHEN TAB 325 MG TAB PO PRN ×2 (08:09→14:18)
[2017-12-07] MEDS: RIVAROXABAN 15 MG TAB PO SCH (08:09)
[2017-12-07] MEDS: cefTRIAXone IN SWFI 1,000 MG/10 ML SYRINGE IVP SCH (08:09)
[2017-12-07] MEDS: MEGESTROL 40 MG TAB PO SCH (08:10)
[2017-12-07] MEDS: ATENOLOL 25 MG TAB PO SCH (08:10)
[2017-12-07] MEDS: SENNOSIDES-DOCUSATE SODIUM 1 EACH TAB PO SCH (08:10)
[2017-12-07 08:29] LABS: Basophils % (A) 0 %; Eosinophils # (A) 0.2 k/uL (0-0.7); Eosinophils % (A) 3 %; HCT 41.2 % (34.0-46.0); HGB 13.2 gm/dL (11.4-16.0); Lymphocytes # (A) 1.8 k/uL (1.0-4.8); Lymphocytes % (A) 24 %; MCH 28.6 pg (25.0-35.0); MCHC 32.1 g/dL (31.0-37.0); Mean Platelet Volume 7.4; Monocytes # (A) 0.4 k/uL (0-1.0); Monocytes % (A) 5 %; Neutrophils # (A) 5.2 k/uL (1.3-7.7); Neutrophils % (A) 67 %; Platelet Count 131 k/uL (150-450); RBC 4.63 m/uL (3.80-5.40); RDW 14.4 % (11.5-15.5); WBC 7.7 k/uL (3.8-10.6)
[2017-12-07 08:43] LABS: Albumin 3.2 g/dL (3.5-5.0); Calcium 10.3 mg/dL (8.4-10.2); Total Bilirubin 1.9 mg/dL (0.2-1.3); Total Protein 6.2 g/dL (6.3-8.2)
[2017-12-07 08:47] LABS: Potassium 4.7 mmol/L (3.5-5.1)
[2017-12-07 11:08] VITALS: PULSE 88
[2017-12-07 11:09] VITALS: TEMP 98.5
--- NOTE | 2017-12-07 12:51 | XR ---
Left foot HISTORY: First digit pain, trauma 4 days prior 3 views of the left foot Bone mineralization is reduced which could limit sensitivity. Alignment is remarkable for hallux valg us deformity. Degenerative change present at the first metatarsophalangeal joint. No evident fracture or dislocation. Soft tissues within normal limits. There is a plantar calcaneal spur. IMPRESSION: No acute fracture or dislocation evident, follow-up as indicated.
--- NOTE | 2017-12-07 14:08 | CDI ---
Documentation Clarification Form Date: 12/07/17 CDS: Alba Hurd RN Admit Date: 12/05/17 Patient Name: Meme Queen ATTENTION: The Clinical Documentation Specialists (CDI) and [facility] Coding Staff appreciate your assistance in clarifying documentation. Please respond to the clarification below the line at the bottom and electronically sign. The CDI & [facility] Coding staff will review the response and follow-up if needed. Please note: Queries are made part of the Legal Health Record. If you have any questions, please contact the author of this message via ITS. Dr. Aviva Melara MD, Can you please render your opinion on the following documentation? Patient presented with a fall and weakness Admitted for weakness and UTI. History/Risk Factors: a fib, HTN, hyperlipidemia, pneumonia, UTI, uterine cancer , mets to the lungs Clinical Indicators: WBC on admission: 15.1 Blood cultures: no growth after 48 hrs. Vitals signs on admission: T 97.9, P 89, R 17, 136/89, 97% RA, On 12/04 T 99.2 , 12/05 T 97.1, 12/07 T 100.2 12/06/2017 Dr Roman consult states "although cultures are negative patient has a markedly abnormal urinalysis and she had evidence of sepsis at admission is noted by her fever at home, leukocytosis and evidence of symptoms of urinary infection" Treatment: monitor vitals ID Consult: Dr Gillis states "she was brought to Hospital is been admitted for another bout of sepsis from urinary tract". Antibiotics: Rocephin IVPB IV Bolus: .9 500ml x 1 In your professional opinion, please clarify if these findings signify one of the following conditions, whether the condition is POA, and cause, if known: Condition Sepsis ruled out Sepsis ruled in Other, please specify Unable to determine Present on Admission: Yes or No Identify the (suspected) organism Please continue to document in your progress notes, under the line below and/or in the discharge summary in order to capture severity of illness and risk of mortality. Include clinical findings that support your diagnosis. Sepsis ruled out MTDD
== END 2017-12-07 14:00 | DRG 690 ==
LOC: EC 04:11 → 4MS4W 07:27 → OBSVTOIN 12-05 11:33
PROVIDERS: ADMIT Internal Medicine; ATTEND Internal Medicine
PROC: 05HD33Z Insertion of Infusion Device into Right Cephalic Vein, Percutaneous Approach (ICD-10-PCS; principal; 2017-12-07 07:35)
DX: N39.0 Urinary tract infection, site not specified (principal); N17.9 Acute kidney failure, unspecified; C78.00 Secondary malignant neoplasm of unspecified lung; C79.60 Secondary malignant neoplasm of unspecified ovary; B95.2 Enterococcus as the cause of diseases classified elsewhere; E04.1 Nontoxic single thyroid nodule; E78.5 Hyperlipidemia, unspecified; E83.52 Hypercalcemia; I12.9 Hypertensive chronic kidney disease with stage 1 through stage 4 chronic kidney disease, or unspecified chronic kidney disease; I48.2 Chronic atrial fibrillation; N18.3 Chronic kidney disease, stage 3 (moderate); N31.9 Neuromuscular dysfunction of bladder, unspecified; Z85.42 Personal history of malignant neoplasm of other parts of uterus; Z85.038 Personal history of other malignant neoplasm of large intestine; R32 Unspecified urinary incontinence; S09.90XA Unspecified injury of head, initial encounter; W19.XXXA Unspecified fall, initial encounter; Z74.01 Bed confinement status; Z79.01 Long term (current) use of anticoagulants; Z82.49 Family history of ischemic heart disease and other diseases of the circulatory system; Z87.01 Personal history of pneumonia (recurrent); Z87.440 Personal history of urinary (tract) infections; Z88.1 Allergy status to other antibiotic agents; Z90.710 Acquired absence of both cervix and uterus; Z98.42 Cataract extraction status, left eye; Z98.41 Cataract extraction status, right eye; G43.909 Migraine, unspecified, not intractable, without status migrainosus; Z91.81 History of falling; Y92.002 Bathroom of unspecified non-institutional (private) residence as the place of occurrence of the external cause; Z88.0 Allergy status to penicillin; Z88.8 Allergy status to other drugs, medicaments and biological substances
CPT/HCPCS: 36415; 36569; 70450; 71045; 72125; 72170; 76937; 80053; 81001; 85025; 87040; 87086; 93005; 94640; 94760; 96374; 99285